=== PATIENT | female | born 1945 | race Caucasian/White ===

== ENCOUNTER 2016-08-10 07:45 | Inpatient (IN) | payer OTHER ==
[~2016-08-10] VITALS: Ht 152.4 cm; Wt 90.0 kg
[~2016-08-10 07:45] MED LIST: ABILIFY5 MG PO; ALPRAZOLAM0.5 MG PO; AMLODIPINE-BEN1 EAC2 PO; CYMBALTA30 MG PO; DETROL LA4 MG PO; DITROPAN5 MG PO; IRON325 M1 PO; LEVOTHROID,S0.112 MG PO; LOPRESSOR100 M1 PO; LOTENSIN HCT1 TABLE1 PO; NAPROXEN500 M1 PO; NAPROXEN500 M2 PO; NEXIUM40 MG PO; NORVASC2.5 MG PO; PRAVACHOL40 MG PO; SIMVASTATIN80 M1 PO; SIMVASTATIN80 MG PO; SYNTHROID100 MCG PO; VITAMIN D1000 INTUN PO; ZOLOFT100 MG PO
[2016-08-10 08:37] VITALS: BP 136/77
[2016-08-10 14:54] VITALS: BP 123/60
[2016-08-10 17:07] VITALS: BP 103/56
[2016-08-10 19:53] VITALS: BP 116/57
[2016-08-11 00:20] VITALS: BP 89/55
[2016-08-11 04:25] VITALS: BP 129/94
[2016-08-11 05:58] LABS: HEMATOCRIT 28.9 % (36.0-46.0); MCV 87.8 FL (83-99)
[2016-08-11 06:23] LABS: ANION GAP 6 MEQ/L (2-14); CHLORIDE 107 MEQ/L (99-109); GFR ESTIMATE (CALCULATED) > 59 mL/min/; GLUCOSE 107 mg/dL (70-99); POTASSIUM 3.4 MEQ/L (3.7-5.4); SAMPLE HEMOLYSIS CHECK 0; SAMPLE ICTERIC CHECK 0; SAMPLE LIPEMIA CHECK 0; SODIUM 143 MEQ/L (136-147); UREA NITROGEN (BUN) 14 mg/dL (9-23)
[2016-08-11 08:17] VITALS: BP 79/44
[2016-08-11 12:03] VITALS: BP 85/51
[2016-08-11 15:38] VITALS: BP 90/51
[2016-08-11 19:52] VITALS: BP 121/59
[2016-08-12 00:20] VITALS: BP 117/59
[2016-08-12 04:10] VITALS: BP 125/65
[2016-08-12 05:32] LABS: HEMATOCRIT 27.6 % (36.0-46.0); MCV 87.3 FL (83-99)
[2016-08-12 05:56] LABS: ANION GAP 6 MEQ/L (2-14); CHLORIDE 106 MEQ/L (99-109); GFR ESTIMATE (CALCULATED) > 59 mL/min/; GLUCOSE 114 mg/dL (70-99); POTASSIUM 3.3 MEQ/L (3.7-5.4); SAMPLE HEMOLYSIS CHECK 0; SAMPLE ICTERIC CHECK 0; SAMPLE LIPEMIA CHECK 0; SODIUM 140 MEQ/L (136-147); UREA NITROGEN (BUN) 12 mg/dL (9-23)
[2016-08-12 08:04] VITALS: BP 134/63
[2016-08-12 11:49] VITALS: BP 134/55
[2016-08-12 15:37] VITALS: BP 147/67
[2016-08-12 20:30] VITALS: BP 161/65
[2016-08-13 00:03] VITALS: BP 136/69
[2016-08-13 04:30] VITALS: BP 114/65
[2016-08-13 07:11] LABS: ANION GAP 6 MEQ/L (2-14); CHLORIDE 104 MEQ/L (99-109); GFR ESTIMATE (CALCULATED) > 59 mL/min/; GLUCOSE 109 mg/dL (70-99); MAGNESIUM 1.8 mg/dl (1.3-2.7); SAMPLE HEMOLYSIS CHECK 0; SAMPLE ICTERIC CHECK 0; SAMPLE LIPEMIA CHECK 0; SODIUM 141 MEQ/L (136-147); UREA NITROGEN (BUN) 7 mg/dL (9-23)
[2016-08-13 07:14] LABS: POTASSIUM 4.3 MEQ/L (3.7-5.4)
[2016-08-13 07:56] VITALS: BP 119/68
[2016-08-13] MEDS ORDERED: BENADRYL25 MG PO (09:11)
[2016-08-13] MEDS ORDERED: SENNA PLUS TAB1 EACH PO (09:12)
[2016-08-13] MEDS ORDERED: CELECOXIB200 MG PO (09:12)
[2016-08-13] MEDS ORDERED: OXYCODONE HCL5 MG PO (09:12)
[2016-08-13] MEDS ORDERED: XARELTO10 MG PO (09:12)
[2016-08-13] MEDS ORDERED: LIDOCAINE700 MG TD (09:12)
[2016-08-13] MEDS ORDERED: TYLENOL REGULA325 MG PO (09:12)
[2016-08-13 11:41] VITALS: BP 108/67
== END 2016-08-13 14:30 | DRG 470 ==
LOC: 2SOUTH 07:45 → 3WEST 07:45 → 2SOUTH 11:15 → 3WEST 14:36
PROVIDERS: Orthopaedic Surgery; Physician Assistant Surgical
PROC: 0SRC0J9 Replacement of Right Knee Joint with Synthetic Substitute, Cemented, Open Approach (ICD-10-PCS; principal; 2016-08-10)
PROC: 3E0T3BZ Introduction of Anesthetic Agent into Peripheral Nerves and Plexi, Percutaneous Approach (ICD-10-PCS; 2016-08-10)
DX: M17.11 Unilateral primary osteoarthritis, right knee (principal); E87.6 Hypokalemia; G47.33 Obstructive sleep apnea (adult) (pediatric); I10 Essential (primary) hypertension; E03.9 Hypothyroidism, unspecified; K21.9 Gastro-esophageal reflux disease without esophagitis; F32.9 Major depressive disorder, single episode, unspecified; D64.9 Anemia, unspecified; Z88.0 Allergy status to penicillin
CPT/HCPCS: 71010; 80048; 83735; 85014; 85018; 93971; 94660; 94799; C1713; J0131; J0690; J1170; J1885; J2250; J2405; J2795; J7050

== ENCOUNTER 2016-09-28 03:14 | Inpatient (IN) | payer OTHER ==
[~2016-09-28] VITALS: Ht 172.7 cm; Wt 86.7 kg
[~2016-09-28 03:14] MED LIST changes: +BENADRYL25 MG PO; +CELECOXIB200 MG PO; +LIDOCAINE700 MG TD; +OXYCODONE HCL5 MG PO; +SENNA PLUS TAB1 EACH PO; +TYLENOL REGULA325 MG PO; +XARELTO10 MG PO
[2016-09-28 03:55] LABS: HEMATOCRIT 31.4 % (36.0-46.0); MCHC 31.8 G/DL (30.0-36.0); MEAN PLAT.VOLUME 10.2 uM^3 (9.5-12.4); RBC DIS.WIDTH-CV 15.9 % (11.8-14.6); RBC DIS.WIDTH-SD 47.7 % (39-53); RED BLOOD COUNT 3.84 M/uL (3.80-5.20); WHITE BLOOD COUNT 18.6 K/uL (4.1-10.2)
[2016-09-28 04:05] LABS: CHLORIDE 101 mEq/L (99-109); SODIUM 137 mEq/L (136-147)
[2016-09-28 04:07] LABS: GLUCOSE 117 mg/dL (70-99)
[2016-09-28 04:09] LABS: ANION GAP 16 MEQ/L (2-14); TOTAL BILIRUBIN 0.4 mg/dL (0.0-1.0)
[2016-09-28 04:11] LABS: ALKALINE PHOSPHATASE 59 IU/L (3-129); GFR ESTIMATE (CALCULATED) 47 mL/min/
[2016-09-28 04:12] LABS: UREA NITROGEN (BUN) 32 mg/dL (9-23)
[2016-09-28 04:14] LABS: LIPASE 19 U/L (1.0-51.0)
[2016-09-28 04:22] LABS: MCV 81.8 FL (83-99); PLATELET COUNT 590 K/uL (156-360)
[2016-09-28 05:11] LABS: ADD MIUA? NO; BILIRUBIN NEGATIVE; BLOOD NEGATIVE; COLOR YELLOW ((YELLOW)); GLUCOSE (STRIP) NEGATIVE; KETONES NEGATIVE; LEUKOCYTES NEGATIVE; NITRITE NEGATIVE; PROTEIN (STRIP) NEGATIVE; SPECIFIC GRAVITY 1.016 (1.000-1.030); UCUL ADDED? NO; UROBILINOGEN 0.2 MG/DL (0.2-1.0)
[2016-09-28 08:20] VITALS: BP 117/61
[2016-09-28 08:30] VITALS: BP 120/57
[2016-09-28 11:47] VITALS: BP 99/51
[2016-09-28 15:10] VITALS: BP 103/55
[2016-09-28 19:02] VITALS: BP 109/62
[2016-09-28 22:40] VITALS: BP 131/75
[2016-09-29 03:05] VITALS: BP 138/65
[2016-09-29 06:15] LABS: ANION GAP 10 MEQ/L (2-14); CHLORIDE 106 MEQ/L (99-109); GFR ESTIMATE (CALCULATED) 58 mL/min/; GLUCOSE 90 mg/dL (70-99); MAGNESIUM 1.9 mg/dl (1.3-2.7); POTASSIUM 4.1 MEQ/L (3.7-5.4); SAMPLE HEMOLYSIS CHECK 0; SAMPLE ICTERIC CHECK 0; SAMPLE LIPEMIA CHECK 0; SODIUM 139 MEQ/L (136-147); UREA NITROGEN (BUN) 22 mg/dL (9-23)
[2016-09-29 06:28] LABS: EOSINOPHIL (%) 0.7 % (0-5); EOSINOPHIL COUNT 0.1 K/uL (0-0.3); IMMATURE GRANULOCYTE (%) 1.2 % (0.0-0.7); IMMATURE GRANULOCYTE COUNT 0.1 K/uL; INSTRUMENT ABS NEUTROPHIL CT 7.7 K/uL; LYMPHOCYTE COUNT 1.1 K/uL (1.0-2.8); MCH 26.4 PG (29.0-34.0); MCHC 31.1 G/DL (30.0-36.0); MCV 84.8 FL (83-99); MONOCYTE (%) 10.6 % (3-12); MONOCYTE COUNT 1.1 K/uL (0-0.8); NEUTROPHIL (%) 76.7 % (45-76); NEUTROPHIL COUNT 7.7 K/uL (1.8-6.4); RBC DIS.WIDTH-CV 15.9 % (11.8-14.6); RBC DIS.WIDTH-SD 49.5 % (39-53)
[2016-09-29 07:34] LABS: MEAN PLAT.VOLUME 9.5 uM^3 (9.5-12.4); PLAT.SUFFICIENCY ADEQUATE; PLATELET COUNT 388 K/uL (156-360)
[2016-09-29 07:44] VITALS: BP 149/95
[2016-09-29] MEDS ORDERED: MELOXICAM7.5 MG PO (13:08)
[2016-09-29] MEDS ORDERED: ONDANSETRON ODT4 MG PO (13:41)
[2016-09-29 20:10] VITALS: BP 102/68
[2016-09-29 22:27] VITALS: BP 11/70
[2016-09-30] VITALS (9 sets, daily range): BP systolic 101–177; BP diastolic 55–80
[2016-09-30 07:09] LABS: ANION GAP 11 MEQ/L (2-14); CHLORIDE 103 MEQ/L (99-109); GFR ESTIMATE (CALCULATED) 58 mL/min/; GLUCOSE 89 mg/dL (70-99); SAMPLE HEMOLYSIS CHECK 0; SAMPLE ICTERIC CHECK 0; SAMPLE LIPEMIA CHECK 0; SODIUM 140 MEQ/L (136-147); UREA NITROGEN (BUN) 20 mg/dL (9-23)
[2016-09-30 07:12] LABS: EOSINOPHIL (%) 0.6 % (0-5); EOSINOPHIL COUNT 0.1 K/uL (0-0.3); HEMATOCRIT 30.2 % (36.0-46.0); IMMATURE GRANULOCYTE (%) 1.7 % (0.0-0.7); IMMATURE GRANULOCYTE COUNT 0.2 K/uL; LYMPHOCYTE COUNT 1.5 K/uL (1.0-2.8); MCH 26.1 PG (29.0-34.0); MCHC 30.8 G/DL (30.0-36.0); MCV 84.6 FL (83-99); MEAN PLAT.VOLUME 9.7 uM^3 (9.5-12.4); MONOCYTE (%) 9.3 % (3-12); MONOCYTE COUNT 1.1 K/uL (0-0.8); NEUTROPHIL (%) 75.3 % (45-76); RBC DIS.WIDTH-CV 15.9 % (11.8-14.6); RBC DIS.WIDTH-SD 49.5 % (39-53); RED BLOOD COUNT 3.57 M/uL (3.80-5.20)
[2016-09-30 07:22] LABS: PLATELET COUNT 533 K/uL (156-360)
[2016-09-30 08:58] LABS: PROTHROMBIN TIME 11.4 SEC (10.2-12.9)
[2016-09-30 09:01] LABS: PTT 24.5 SEC (25-37)
[2016-10-01 02:44] VITALS: BP 145/71
[2016-10-01 07:05] LABS: BASOPHIL COUNT 0.1 K/uL (0-0.1); EOSINOPHIL (%) 1.6 % (0-5); EOSINOPHIL COUNT 0.2 K/uL (0-0.3); HEMATOCRIT 28.4 % (36.0-46.0); IMMATURE GRANULOCYTE (%) 1.7 % (0.0-0.7); IMMATURE GRANULOCYTE COUNT 0.2 K/uL; INSTRUMENT ABS NEUTROPHIL CT 7.4 K/uL; LYMPHOCYTE COUNT 1.7 K/uL (1.0-2.8); MCH 26.8 PG (29.0-34.0); MCHC 31.7 G/DL (30.0-36.0); MCV 84.5 FL (83-99); MEAN PLAT.VOLUME 9.6 uM^3 (9.5-12.4); MONOCYTE (%) 9.3 % (3-12); NEUTROPHIL (%) 70.2 % (45-76); NEUTROPHIL COUNT 7.4 K/uL (1.8-6.4); PLATELET COUNT 479 K/uL (156-360); RBC DIS.WIDTH-CV 15.9 % (11.8-14.6); RBC DIS.WIDTH-SD 49.6 % (39-53); RED BLOOD COUNT 3.36 M/uL (3.80-5.20); WHITE BLOOD COUNT 10.6 K/uL (4.1-10.2)
[2016-10-01 07:23] LABS: ANION GAP 8 MEQ/L (2-14); CHLORIDE 104 MEQ/L (99-109); GFR ESTIMATE (CALCULATED) > 59 mL/min/; GLUCOSE 98 mg/dL (70-99); SAMPLE HEMOLYSIS CHECK 0; SAMPLE ICTERIC CHECK 0; SAMPLE LIPEMIA CHECK 0; SODIUM 140 MEQ/L (136-147); UREA NITROGEN (BUN) 19 mg/dL (9-23)
[2016-10-01 07:30] VITALS: BP 122/77
[2016-10-01 10:36] VITALS: BP 123/60
[2016-10-01 15:54] VITALS: BP 178/85
[2016-10-01 20:05] VITALS: BP 152/80
[2016-10-02] VITALS (7 sets, daily range): BP systolic 113–158; BP diastolic 59–83
[2016-10-03 03:05] VITALS: BP 126/73
[2016-10-03 07:17] VITALS: BP 129/83
[2016-10-03] MEDS ORDERED: ENDOCET 5-3251 EACH PO (08:48)
== END 2016-10-03 11:52 | disposition home or self-care (01) | DRG 375 ==
LOC: EME 03:14 → EDOF 07:01 → 5EAST 07:01 → ENRESERV 07:02 → 5EAST 08:22 → ENPENDDIS 10-03 → 5EAST 10-03 11:52
PROVIDERS: Emergency Medicine; Hospitalist; Internal Medicine; Radiology Diagnostic Radiology
DX: C78.6 Secondary malignant neoplasm of retroperitoneum and peritoneum (principal); C80.1 Malignant (primary) neoplasm, unspecified; N13.30 Unspecified hydronephrosis; R59.1 Generalized enlarged lymph nodes; K52.9 Noninfective gastroenteritis and colitis, unspecified; D64.9 Anemia, unspecified; D75.89 Other specified diseases of blood and blood-forming organs; I10 Essential (primary) hypertension; E78.5 Hyperlipidemia, unspecified; E78.00 Pure hypercholesterolemia, unspecified; K21.9 Gastro-esophageal reflux disease without esophagitis; E03.9 Hypothyroidism, unspecified; K57.30 Diverticulosis of large intestine without perforation or abscess without bleeding; F32.9 Major depressive disorder, single episode, unspecified; F41.9 Anxiety disorder, unspecified; G89.29 Other chronic pain; M54.9 Dorsalgia, unspecified; Z96.651 Presence of right artificial knee joint; E66.9 Obesity, unspecified; Z68.29 Body mass index [BMI] 29.0-29.9, adult; Z79.01 Long term (current) use of anticoagulants; Z80.42 Family history of malignant neoplasm of prostate; Z87.440 Personal history of urinary (tract) infections
CPT/HCPCS: 74176; 74420; 77012; 80048; 80053; 81003; 83690; 83735; 85025; 85027; 85610; 85730; 88305; 88341 TC; 88342 TC; 94799; 99281; 99285; C1876; J0131; J0330; J1100; J1170; J1626; J1644; J1885; J1956; J2250; J2270; J2405; J2765; J3010; J7030

== ENCOUNTER 2016-10-26 08:07 | Day surgery (SDC) | payer OTHER, MEDICARE ==
[~2016-10-26] VITALS: Ht 152.4 cm; Wt 84.0 kg
[~2016-10-26 08:07] MED LIST changes: +ENDOCET 5-3251 EACH PO; +MELOXICAM7.5 MG PO; +ONDANSETRON ODT4 MG PO
== END 2016-10-26 10:30 | disposition home or self-care (01) ==
LOC: CATH 08:07
PROC: B543ZZA Ultrasonography of Right Jugular Veins, Guidance (ICD-10-PCS; principal; 2016-10-26)
PROC: B5181ZA Fluoroscopy of Superior Vena Cava using Low Osmolar Contrast, Guidance (ICD-10-PCS; principal; 2016-10-26)
PROC: 02HV33Z Insertion of Infusion Device into Superior Vena Cava, Percutaneous Approach (ICD-10-PCS; principal; 2016-10-26)
DX: I87.8 Other specified disorders of veins (principal); I87.2 Venous insufficiency (chronic) (peripheral); C18.9 Malignant neoplasm of colon, unspecified; Z80.49 Family history of malignant neoplasm of other genital organs; Z80.42 Family history of malignant neoplasm of prostate; Z88.0 Allergy status to penicillin
CPT/HCPCS: C1751; C1894; J0690; J1644; J2250; J3010; S0020

== ENCOUNTER 2016-10-28 15:16 | Emergency (ER) | payer OTHER ==
[~2016-10-28] VITALS: Ht 152.4 cm; Wt 83.7 kg
[2016-10-28 16:16] LABS: ADD MIUA? YES; BILIRUBIN NEGATIVE; BLOOD LARGE; COLOR AMBER ((YELLOW)); GLUCOSE (STRIP) NEGATIVE; KETONES NEGATIVE; LEUKOCYTES TRACE; NITRITE NEGATIVE; PROTEIN (STRIP) 100; SPECIFIC GRAVITY 1.016 (1.000-1.030); UROBILINOGEN 0.2 MG/DL (0.2-1.0)
[2016-10-28 16:34] LABS: BASOPHIL COUNT 0.1 K/uL (0-0.1); EOSINOPHIL (%) 3.1 % (0-5); EOSINOPHIL COUNT 0.2 K/uL (0-0.3); HEMATOCRIT 27.5 % (36.0-46.0); IMMATURE GRANULOCYTE (%) 0.4 % (0.0-0.7); INSTRUMENT ABS NEUTROPHIL CT 4.1 K/uL; LYMPHOCYTE COUNT 0.8 K/uL (1.0-2.8); MCH 25.4 PG (29.0-34.0); MCHC 31.6 G/DL (30.0-36.0); MEAN PLAT.VOLUME 9.2 uM^3 (9.5-12.4); MONOCYTE (%) 6.4 % (3-12); MONOCYTE COUNT 0.4 K/uL (0-0.8); NEUTROPHIL (%) 74.2 % (45-76); NEUTROPHIL COUNT 4.1 K/uL (1.8-6.4); PLATELET COUNT 376 K/uL (156-360); RBC DIS.WIDTH-CV 15.3 % (11.8-14.6); RBC DIS.WIDTH-SD 44.6 % (39-53); RED BLOOD COUNT 3.42 M/uL (3.80-5.20); WHITE BLOOD COUNT 5.5 K/uL (4.1-10.2)
[2016-10-28 16:37] LABS: MCV 80.4 FL (83-99)
[2016-10-28 16:38] LABS: INTER. NORMALIZED RATIO 1.1; PROTHROMBIN TIME 11.8 SEC (10.2-12.9)
[2016-10-28 16:40] LABS: CHLORIDE 106 mEq/L (99-109); POTASSIUM 2.9 mEq/L (3.7-5.4); SODIUM 141 mEq/L (136-147)
[2016-10-28 16:41] LABS: GLUCOSE 124 mg/dL (70-99)
[2016-10-28 16:43] LABS: ANION GAP 11 MEQ/L (2-14)
[2016-10-28 16:45] LABS: GFR ESTIMATE (CALCULATED) > 59 mL/min/
[2016-10-28 16:46] LABS: UREA NITROGEN (BUN) 22 mg/dL (9-23)
[2016-10-28 16:48] LABS: BACTERIA RARE /HPF; EPITHELIAL CELLS RARE /HPF; MUCUS TRACE /LPF; RED BLOOD CELLS TNTC /HPF (0-5)
[2016-10-28] MEDS ORDERED: K-DUR10 MEQ PO (19:11)
[2016-10-28 19:33] VITALS: BP 92/52
== END 2016-10-28 19:35 | disposition home or self-care (01) ==
LOC: EME 15:16
PROVIDERS: Emergency Medicine
DX: R31.9 Hematuria, unspecified (principal); E87.6 Hypokalemia; C18.9 Malignant neoplasm of colon, unspecified; C78.6 Secondary malignant neoplasm of retroperitoneum and peritoneum; Z79.899 Other long term (current) drug therapy; E78.5 Hyperlipidemia, unspecified; E03.9 Hypothyroidism, unspecified; K21.9 Gastro-esophageal reflux disease without esophagitis; G89.29 Other chronic pain; M54.5 Low back pain; Z87.442 Personal history of urinary calculi; Z96.89 Presence of other specified functional implants; Z96.651 Presence of right artificial knee joint; Z88.0 Allergy status to penicillin
CPT/HCPCS: 80048; 81003; 85025; 85610; 99281; 99285; J3480; J7040

== ENCOUNTER 2016-10-29 22:37 | Inpatient (IN) | payer OTHER ==
[~2016-10-29] VITALS: Ht 152.4 cm; Wt 87.9 kg
[~2016-10-29 22:37] MED LIST changes: +K-DUR10 MEQ PO
[2016-10-29 23:22] LABS: HEMATOCRIT 26.2 % (36.0-46.0); MCH 25.7 PG (29.0-34.0); MCHC 32.1 G/DL (30.0-36.0); MCV 80.1 FL (83-99); MEAN PLAT.VOLUME 10.1 uM^3 (9.5-12.4); PLATELET COUNT 350 K/uL (156-360); RBC DIS.WIDTH-CV 15.6 % (11.8-14.6); RBC DIS.WIDTH-SD 45.7 % (39-53); RED BLOOD COUNT 3.27 M/uL (3.80-5.20); WHITE BLOOD COUNT 18.8 K/uL (4.1-10.2)
[2016-10-29 23:29] LABS: INTER. NORMALIZED RATIO 1.1; PROTHROMBIN TIME 12.5 SEC (10.2-12.9)
[2016-10-29 23:32] LABS: PTT 24.3 SEC (25-37)
[2016-10-29 23:40] LABS: CHLORIDE 111 mEq/L (99-109); POTASSIUM 2.8 mEq/L (3.7-5.4); SODIUM 140 mEq/L (136-147)
[2016-10-29 23:43] LABS: GLUCOSE 159 mg/dL (70-99)
[2016-10-29 23:44] LABS: ANION GAP 12 MEQ/L (2-14)
[2016-10-29 23:45] LABS: TOTAL BILIRUBIN 0.7 mg/dL (0.0-1.0)
[2016-10-29 23:46] LABS: ALKALINE PHOSPHATASE 48 IU/L (3-129)
[2016-10-29 23:47] LABS: UREA NITROGEN (BUN) 22 mg/dL (9-23)
[2016-10-29 23:50] LABS: LIPASE 9 U/L (1.0-51.0)
[2016-10-29 23:52] LABS: GFR ESTIMATE (CALCULATED) 29 mL/min/
[2016-10-30] VITALS (27 sets, daily range): BP systolic 70–124; BP diastolic 41–74
[2016-10-30 02:30] LABS: ADD MIUA? YES; BILIRUBIN NEGATIVE; BLOOD MODERATE; COLOR AMBER ((YELLOW)); GLUCOSE (STRIP) NEGATIVE; KETONES NEGATIVE; LEUKOCYTES LARGE; NITRITE POSITIVE; PROTEIN (STRIP) 30; SPECIFIC GRAVITY 1.013 (1.000-1.030); UROBILINOGEN 0.2 MG/DL (0.2-1.0)
[2016-10-30 02:48] LABS: BACTERIA 3+ /HPF; CASTS NONE SEEN /LPF; CRYSTALS NONE SEEN; EPITHELIAL CELLS 2+ /HPF; MUCUS RARE /LPF; RED BLOOD CELLS 0-5 /HPF (0-5); UCUL ADDED? YES; WHITE BLOOD CELLS 40-50 /HPF (0-5)
[2016-10-30 05:12] LABS: METH RESISTANT S AUREUS PCR NEGATIVE (NEGATIVE)
[2016-10-30 05:21] LABS: PROBE CHECK PASS; SPECIMEN PROCESSING CONTROL PASS
[2016-10-30 08:49] LABS: HEMATOCRIT 25.7 % (36.0-46.0); MCH 25.2 PG (29.0-34.0); PLATELET COUNT 302 K/uL (156-360); RBC DIS.WIDTH-CV 15.7 % (11.8-14.6); RBC DIS.WIDTH-SD 48.1 % (39-53); RED BLOOD COUNT 3.06 M/uL (3.80-5.20); WHITE BLOOD COUNT 11.4 K/uL (4.1-10.2)
[2016-10-30 09:18] LABS: ABS NEUTROPHIL COUNT 10.8; ANISOCYTOSIS 1+; BURR CELLS 1+; EOSINOPHIL ABS CT 0; INSTRUMENT ABS NEUTROPHIL CT 9.5 K/uL; LYMPHOCYTES 0.8 % (15.0-45.0); METAMYELOCYTES 3.5 %; OVALOCYTES 1+; PLAT.SUFFICIENCY ADEQUATE; POIKILOCYTOSIS 1+; SEG.NEUTROPHILS 74.8 % (46.0-76.0)
[2016-10-30 09:22] LABS: ANION GAP 14 MEQ/L (2-14); CHLORIDE 111 MEQ/L (99-109); GFR ESTIMATE (CALCULATED) 28 mL/min/; GLUCOSE 124 mg/dL (70-99); POTASSIUM 3.1 MEQ/L (3.7-5.4); SAMPLE HEMOLYSIS CHECK 0; SAMPLE ICTERIC CHECK 0; SAMPLE LIPEMIA CHECK 0; SODIUM 141 MEQ/L (136-147); UREA NITROGEN (BUN) 26 mg/dL (9-23)
[2016-10-30 12:27] LABS: TROP-I INTERPRETATION NEGATIVE; TROPONIN-I 0.01 ng/mL (0.0-0.30)
[2016-10-30] MEDS ORDERED: LOPERAMIDE2 MG PO (13:55)
[2016-10-30] MEDS ORDERED: ONDANSETRON HCL4 MG PO (13:56)
[2016-10-30 18:18] LABS: POINT-OF-CARE METER ID UU14174217
[2016-10-30 19:33] LABS: HEMATOCRIT 23.4 % (36.0-46.0); MCH 25.4 PG (29.0-34.0); MCHC 31.2 G/DL (30.0-36.0); MCV 81.5 FL (83-99); RBC DIS.WIDTH-CV 15.7 % (11.8-14.6); RBC DIS.WIDTH-SD 47.1 % (39-53); RED BLOOD COUNT 2.87 M/uL (3.80-5.20); WHITE BLOOD COUNT 10.7 K/uL (4.1-10.2)
[2016-10-30 20:22] LABS: ANISOCYTOSIS 1+; BAND NEUTROPHILS 22.2 % (0-8.0); BURR CELLS 1+; EOSINOPHIL ABS CT 0.1; EOSINOPHILS 0.9 % (0-5.0); INSTRUMENT ABS NEUTROPHIL CT 8.3 K/uL; LYMPHOCYTES 1.7 % (15.0-45.0); METAMYELOCYTES 2.6 %; MICROCYTOSIS 1+; OVALOCYTES 1+; PLAT.SUFFICIENCY ADEQUATE; PLATELET CLUMPS PRESENT - PLATELET COUNT APPEARS ADQ.; SEG.NEUTROPHILS 70.9 % (46.0-76.0)
[2016-10-30 20:23] LABS: PLATELET COUNT UNABLE TO REPORT K/uL (156-360)
[2016-10-31] VITALS (36 sets, daily range): BP systolic 0–148; BP diastolic 0–88
[2016-10-31 00:24] LABS: POINT-OF-CARE METER ID UU13113731
[2016-10-31 02:36] LABS: C DIFF TOXIN NEGATIVE (NEGATIVE)
[2016-10-31 02:40] LABS: PROBE CHECK PASS; SPECIMEN PROCESSING CONTROL PASS
[2016-10-31 06:34] LABS: ANION GAP 11 MEQ/L (2-14); CHLORIDE 112 MEQ/L (99-109); GFR ESTIMATE (CALCULATED) 29 mL/min/; GLUCOSE 144 mg/dL (70-99); MAGNESIUM 1.8 mg/dl (1.3-2.7); POTASSIUM 3.1 MEQ/L (3.7-5.4); SAMPLE HEMOLYSIS CHECK 0; SAMPLE ICTERIC CHECK 0; SAMPLE LIPEMIA CHECK 0; SODIUM 142 MEQ/L (136-147); UREA NITROGEN (BUN) 22 mg/dL (9-23)
[2016-10-31 06:43] LABS: MCH 25.1 PG (29.0-34.0); MCHC 30.8 G/DL (30.0-36.0); MCV 81.4 FL (83-99); MEAN PLAT.VOLUME 10.1 uM^3 (9.5-12.4); RBC DIS.WIDTH-CV 15.8 % (11.8-14.6); RED BLOOD COUNT 2.95 M/uL (3.80-5.20); WHITE BLOOD COUNT 9.8 K/uL (4.1-10.2)
[2016-10-31 06:45] LABS: PLATELET COUNT 204 K/uL (156-360)
[2016-10-31 06:49] LABS: INTER. NORMALIZED RATIO 1.4
[2016-10-31 07:29] LABS: ABS NEUTROPHIL COUNT 8.7; ANISOCYTOSIS 1+; BAND NEUTROPHILS 10.6 % (0-8.0); EOSINOPHIL ABS CT 0.1; EOSINOPHILS 0.9 % (0-5.0); INSTRUMENT ABS NEUTROPHIL CT 8.5 K/uL; LYMPHOCYTES 0.9 % (15.0-45.0); METAMYELOCYTES 0.9 %; MICROCYTOSIS 2+; MYELOCYTES 0.9 %; OVALOCYTES 1+; PLAT.SUFFICIENCY ADEQUATE; POIKILOCYTOSIS 1+; SEG.NEUTROPHILS 77.9 % (46.0-76.0); SMUDGE CELLS 2.7
[2016-10-31 12:04] LABS: POINT-OF-CARE METER ID UU13113731
[2016-10-31 13:35] LABS: C DIFF TOXIN ND (NEGATIVE)
[2016-10-31 18:17] LABS: POINT-OF-CARE METER ID UU13113731
[2016-10-31 18:27] LABS: IRON < 10.0 MCG/DL (35-150)
[2016-11-01] VITALS (24 sets, daily range): BP systolic 107–154; BP diastolic 57–91
[2016-11-01 00:26] LABS: POINT-OF-CARE METER ID UU14174217
[2016-11-01 02:34] LABS: HEMATOCRIT 27.8 % (36.0-46.0); MCH 26.8 PG (29.0-34.0); MCHC 32.4 G/DL (30.0-36.0); MCV 82.7 FL (83-99); MEAN PLAT.VOLUME 9.8 uM^3 (9.5-12.4); PLATELET COUNT 171 K/uL (156-360); RBC DIS.WIDTH-CV 15.5 % (11.8-14.6); RBC DIS.WIDTH-SD 47.2 % (39-53); RED BLOOD COUNT 3.36 M/uL (3.80-5.20); WHITE BLOOD COUNT 12.6 K/uL (4.1-10.2)
[2016-11-01 06:11] LABS: HEMATOCRIT 26.9 % (36.0-46.0); MCH 27.3 PG (29.0-34.0); MCHC 32.7 G/DL (30.0-36.0); MCV 83.5 FL (83-99); MEAN PLAT.VOLUME 9.8 uM^3 (9.5-12.4); PLATELET COUNT 169 K/uL (156-360); RBC DIS.WIDTH-CV 15.7 % (11.8-14.6); RBC DIS.WIDTH-SD 47.7 % (39-53); RED BLOOD COUNT 3.22 M/uL (3.80-5.20)
[2016-11-01 06:19] LABS: ANION GAP 8 MEQ/L (2-14); CHLORIDE 112 MEQ/L (99-109); GFR ESTIMATE (CALCULATED) 36 mL/min/; POTASSIUM 3.3 MEQ/L (3.7-5.4); SAMPLE HEMOLYSIS CHECK 0; SAMPLE ICTERIC CHECK 0; SAMPLE LIPEMIA CHECK 0; SODIUM 141 MEQ/L (136-147); UREA NITROGEN (BUN) 23 mg/dL (9-23)
[2016-11-01 06:20] LABS: GLUCOSE 103 mg/dL (70-99)
[2016-11-01 07:03] LABS: ABS NEUTROPHIL COUNT 10.5; BURR CELLS 3+; EOSINOPHIL ABS CT 0; INSTRUMENT ABS NEUTROPHIL CT 10.3 K/uL; LYMPHOCYTES 4.9 % (15.0-45.0); PLAT.SUFFICIENCY ADEQUATE; POIKILOCYTOSIS 3+; SEG.NEUTROPHILS 90.1 % (46.0-76.0); TEAR DROP CELLS 1+
[2016-11-01 12:43] LABS: POINT-OF-CARE METER ID UU13113731
[2016-11-01 17:23] LABS: POINT-OF-CARE METER ID UU14208751
[2016-11-02] VITALS (15 sets, daily range): BP systolic 0–147; BP diastolic 0–84
[2016-11-02 01:01] LABS: POINT-OF-CARE METER ID UU14208751; POINT-OF-CARE USER ID LABHNS84
[2016-11-02 05:53] LABS: HEMATOCRIT 26.6 % (36.0-46.0); MCH 26.7 PG (29.0-34.0); MCV 83.6 FL (83-99); PLATELET COUNT 133 K/uL (156-360); RBC DIS.WIDTH-CV 15.9 % (11.8-14.6); RBC DIS.WIDTH-SD 48.9 % (39-53); RED BLOOD COUNT 3.18 M/uL (3.80-5.20); WHITE BLOOD COUNT 7.2 K/uL (4.1-10.2)
[2016-11-02 06:13] LABS: ANION GAP 8 MEQ/L (2-14); CHLORIDE 112 MEQ/L (99-109); GFR ESTIMATE (CALCULATED) 43 mL/min/; GLUCOSE 109 mg/dL (70-99); POTASSIUM 3.6 MEQ/L (3.7-5.4); SAMPLE HEMOLYSIS CHECK 0; SAMPLE ICTERIC CHECK 0; SAMPLE LIPEMIA CHECK 0; SODIUM 142 MEQ/L (136-147); UREA NITROGEN (BUN) 19 mg/dL (9-23)
[2016-11-02 07:03] LABS: ABS NEUTROPHIL COUNT 6.8; BAND NEUTROPHILS 2.6 % (0-8.0); EOSINOPHIL ABS CT 0; INSTRUMENT ABS NEUTROPHIL CT 6.3 K/uL; LYMPHOCYTES 1.8 % (15.0-45.0); METAMYELOCYTES 0.9 %; SEG.NEUTROPHILS 92.1 % (46.0-76.0); SMUDGE CELLS 0.9
[2016-11-02 11:50] LABS: POINT-OF-CARE METER ID UU14208751; POINT-OF-CARE USER ID 612031313
[2016-11-03] VITALS (12 sets, daily range): BP systolic 0–156; BP diastolic 0–81
[2016-11-03 05:32] LABS: HEMATOCRIT 25.7 % (36.0-46.0); MCH 26.1 PG (29.0-34.0); MCHC 31.1 G/DL (30.0-36.0); MEAN PLAT.VOLUME 9.8 uM^3 (9.5-12.4); PLATELET COUNT 107 K/uL (156-360); RBC DIS.WIDTH-CV 16.1 % (11.8-14.6); RBC DIS.WIDTH-SD 49.3 % (39-53); RED BLOOD COUNT 3.06 M/uL (3.80-5.20); WHITE BLOOD COUNT 4.1 K/uL (4.1-10.2)
[2016-11-03 06:01] LABS: EOSINOPHIL (%) 2.4 % (0-5); EOSINOPHIL COUNT 0.1 K/uL (0-0.3); IMMATURE GRANULOCYTE (%) 1.7 % (0.0-0.7); IMMATURE GRANULOCYTE COUNT 0.1 K/uL; INSTRUMENT ABS NEUTROPHIL CT 3.2 K/uL; LYMPHOCYTE COUNT 0.2 K/uL (1.0-2.8); MONOCYTE (%) 14.5 % (3-12); MONOCYTE COUNT 0.6 K/uL (0-0.8); NEUTROPHIL (%) 77.1 % (45-76); NEUTROPHIL COUNT 3.2 K/uL (1.8-6.4)
[2016-11-03 09:23] LABS: ANION GAP 5 MEQ/L (2-14); CHLORIDE 109 MEQ/L (99-109); GFR ESTIMATE (CALCULATED) 47 mL/min/; GLUCOSE 105 mg/dL (70-99); POTASSIUM 3.2 MEQ/L (3.7-5.4); SAMPLE HEMOLYSIS CHECK 0; SAMPLE ICTERIC CHECK 0; SAMPLE LIPEMIA CHECK 0; SODIUM 140 MEQ/L (136-147); UREA NITROGEN (BUN) 15 mg/dL (9-23)
[2016-11-03 09:36] LABS: MAGNESIUM 1.4 mg/dl (1.3-2.7)
[2016-11-04 07:58] VITALS: BP 178/81
[2016-11-04 09:12] LABS: HEMATOCRIT 27.1 % (36.0-46.0); MCH 26.9 PG (29.0-34.0); MCHC 32.1 G/DL (30.0-36.0); MCV 83.6 FL (83-99); MEAN PLAT.VOLUME 9.6 uM^3 (9.5-12.4); PLATELET COUNT 125 K/uL (156-360); RBC DIS.WIDTH-CV 16.3 % (11.8-14.6); RBC DIS.WIDTH-SD 49.6 % (39-53); RED BLOOD COUNT 3.24 M/uL (3.80-5.20)
[2016-11-04 09:59] LABS: ANION GAP 7 MEQ/L (2-14); CHLORIDE 107 MEQ/L (99-109); FERRITIN 926 NG/ML (10-291); GFR ESTIMATE (CALCULATED) 52 mL/min/; GLUCOSE 107 mg/dL (70-99); MAGNESIUM 1.7 mg/dl (1.3-2.7); POTASSIUM 3.4 MEQ/L (3.7-5.4); SAMPLE HEMOLYSIS CHECK 0; SAMPLE ICTERIC CHECK 0; SAMPLE LIPEMIA CHECK 0; SODIUM 139 MEQ/L (136-147); UREA NITROGEN (BUN) 11 mg/dL (9-23)
[2016-11-04 10:34] LABS: ABS NEUTROPHIL COUNT 4.4; BAND NEUTROPHILS 7.8 % (0-8.0); BASOPHILS 0.9 %; EOSINOPHIL ABS CT 0; EOSINOPHILS 0.9 % (0-5.0); INSTRUMENT ABS NEUTROPHIL CT 3.7 K/uL; LYMPHOCYTES 6.9 % (15.0-45.0); METAMYELOCYTES 0.9 %; OVALOCYTES 1+; PLAT.SUFFICIENCY DECREASED; POIKILOCYTOSIS 1+; SEG.NEUTROPHILS 80.9 % (46.0-76.0)
[2016-11-04 15:35] VITALS: BP 177/80
[2016-11-04 18:47] VITALS: BP 151/76
[2016-11-04 23:58] VITALS: BP 143/69
[2016-11-05 06:56] LABS: HEMATOCRIT 26.8 % (36.0-46.0); MCH 26.3 PG (29.0-34.0); MCHC 31.3 G/DL (30.0-36.0); MCV 83.8 FL (83-99); MEAN PLAT.VOLUME 10.4 uM^3 (9.5-12.4); PLATELET COUNT 141 K/uL (156-360); RBC DIS.WIDTH-CV 16.1 % (11.8-14.6); RBC DIS.WIDTH-SD 48.6 % (39-53); WHITE BLOOD COUNT 6.3 K/uL (4.1-10.2)
[2016-11-05 07:12] VITALS: BP 170/92
[2016-11-05 07:20] LABS: ANION GAP 8 MEQ/L (2-14); CHLORIDE 107 MEQ/L (99-109); GFR ESTIMATE (CALCULATED) 47 mL/min/; GLUCOSE 105 mg/dL (70-99); POTASSIUM 3.4 MEQ/L (3.7-5.4); SAMPLE HEMOLYSIS CHECK 0; SAMPLE ICTERIC CHECK 0; SAMPLE LIPEMIA CHECK 0; SODIUM 143 MEQ/L (136-147); UREA NITROGEN (BUN) 15 mg/dL (9-23)
[2016-11-05 07:54] LABS: EOSINOPHIL (%) 1.1 % (0-5); EOSINOPHIL COUNT 0.1 K/uL (0-0.3); HEMATOLOGY COMMENT 1 SMEAR COMPATIBLE; IMMATURE GRANULOCYTE (%) 1.9 % (0.0-0.7); IMMATURE GRANULOCYTE COUNT 0.1 K/uL; INSTRUMENT ABS NEUTROPHIL CT 4.5 K/uL; LYMPHOCYTE COUNT 0.7 K/uL (1.0-2.8); MONOCYTE (%) 12.8 % (3-12); MONOCYTE COUNT 0.8 K/uL (0-0.8); NEUTROPHIL (%) 72.3 % (45-76); NEUTROPHIL COUNT 4.5 K/uL (1.8-6.4)
[2016-11-05 11:19] VITALS: BP 168/70
[2016-11-05 11:21] LABS: BASE EXCESS 3.9 mEq/L (-3 to +3); BICARBONATE 27.4 mEq/L (22-26); CARBOXY HGB 1.4 % (0-5); METHEMOGLOBIN 1.2 % (0-1.5); PCO2 36 mm Hg (35-45); PO2 80 mm Hg (80-100); pH 7.49 (7.35-7.45)
[2016-11-05 11:24] LABS: COMMENTS - BLOOD GASES A+C+; DEVICE NCHHF; FI02 100 %; O2 FLOW 35 L/MIN; SITE RR; TOTAL RESP RATE 20 resp/min
[2016-11-05 15:20] VITALS: BP 140/67
[2016-11-05 23:57] VITALS: BP 105/51
[2016-11-06 04:33] VITALS: BP 100/55
[2016-11-06 06:13] LABS: HEMATOCRIT 27.7 % (36.0-46.0); MCH 26.7 PG (29.0-34.0); MCHC 31.4 G/DL (30.0-36.0); MEAN PLAT.VOLUME 10.7 uM^3 (9.5-12.4); PLATELET COUNT 147 K/uL (156-360); RBC DIS.WIDTH-CV 16.6 % (11.8-14.6); RBC DIS.WIDTH-SD 51.5 % (39-53); RED BLOOD COUNT 3.26 M/uL (3.80-5.20); WHITE BLOOD COUNT 5.3 K/uL (4.1-10.2)
[2016-11-06 06:48] LABS: EOSINOPHIL (%) 1.5 % (0-5); EOSINOPHIL COUNT 0.1 K/uL (0-0.3); IMMATURE GRANULOCYTE (%) 3.6 % (0.0-0.7); IMMATURE GRANULOCYTE COUNT 0.2 K/uL; INSTRUMENT ABS NEUTROPHIL CT 3.8 K/uL; LYMPHOCYTE COUNT 0.6 K/uL (1.0-2.8); MONOCYTE (%) 10.1 % (3-12); MONOCYTE COUNT 0.5 K/uL (0-0.8); NEUTROPHIL (%) 72.2 % (45-76); NEUTROPHIL COUNT 3.8 K/uL (1.8-6.4)
[2016-11-06 07:50] VITALS: BP 118/65
[2016-11-06 07:53] LABS: ANION GAP 7 MEQ/L (2-14); CHLORIDE 106 MEQ/L (99-109); GFR ESTIMATE (CALCULATED) 43 mL/min/; GLUCOSE 105 mg/dL (70-99); POTASSIUM 3.3 MEQ/L (3.7-5.4); SAMPLE HEMOLYSIS CHECK 0; SAMPLE ICTERIC CHECK 0; SAMPLE LIPEMIA CHECK 0; SODIUM 140 MEQ/L (136-147); UREA NITROGEN (BUN) 14 mg/dL (9-23)
[2016-11-06 16:42] VITALS: BP 145/83
[2016-11-07 00:06] VITALS: BP 149/66
[2016-11-07 07:55] VITALS: BP 151/69
[2016-11-07 16:11] VITALS: BP 133/62
[2016-11-07 19:45] VITALS: BP 116/71
[2016-11-07 23:58] VITALS: BP 135/66
[2016-11-08 06:55] LABS: MCH 27.2 PG (29.0-34.0); MCHC 32.2 G/DL (30.0-36.0); MCV 84.4 FL (83-99); MEAN PLAT.VOLUME 10.7 uM^3 (9.5-12.4); RBC DIS.WIDTH-CV 17.2 % (11.8-14.6); RBC DIS.WIDTH-SD 52.3 % (39-53); WHITE BLOOD COUNT 7.4 K/uL (4.1-10.2)
[2016-11-08 07:01] LABS: PLATELET COUNT 240 K/uL (156-360)
[2016-11-08 07:39] LABS: ANION GAP 7 MEQ/L (2-14); CHLORIDE 105 MEQ/L (99-109); GLUCOSE 132 mg/dL (70-99); MAGNESIUM 1.7 mg/dl (1.3-2.7); SAMPLE HEMOLYSIS CHECK 0; SAMPLE ICTERIC CHECK 0; SAMPLE LIPEMIA CHECK 0; SODIUM 137 MEQ/L (136-147)
[2016-11-08 07:41] VITALS: BP 150/80
[2016-11-08 07:41] LABS: GFR ESTIMATE (CALCULATED) 15 mL/min/; POTASSIUM 4.6 MEQ/L (3.7-5.4); UREA NITROGEN (BUN) 26 mg/dL (9-23)
[2016-11-08 15:03] LABS: ADD MIUA? YES; BILIRUBIN NEGATIVE; BLOOD SMALL; COLOR YELLOW ((YELLOW)); GLUCOSE (STRIP) NEGATIVE; KETONES NEGATIVE; LEUKOCYTES NEGATIVE; NITRITE NEGATIVE; PROTEIN (STRIP) NEGATIVE; UROBILINOGEN 0.2 MG/DL (0.2-1.0)
[2016-11-08 15:54] LABS: BACTERIA NONE SEEN /HPF; EPITHELIAL CELLS 4+ /HPF; MUCUS TRACE /LPF; RED BLOOD CELLS NONE SEEN /HPF (0-5); UCUL ADDED? NO; URIC ACID CRYSTALS 4+ /HPF; WHITE BLOOD CELLS 0-5 /HPF (0-5)
[2016-11-08 16:03] VITALS: BP 164/80
[2016-11-08 17:03] LABS: UR CREATININE CONCENTRATION 68.8 MG/DL
[2016-11-08 22:41] VITALS: BP 130/70
[2016-11-09 08:01] LABS: HEMATOCRIT 32.4 % (36.0-46.0); MCH 25.9 PG (29.0-34.0); MCHC 30.6 G/DL (30.0-36.0); MCV 84.8 FL (83-99); MEAN PLAT.VOLUME 10.4 uM^3 (9.5-12.4); PLATELET COUNT 248 K/uL (156-360); RBC DIS.WIDTH-CV 17.5 % (11.8-14.6); RBC DIS.WIDTH-SD 53.9 % (39-53); RED BLOOD COUNT 3.82 M/uL (3.80-5.20); WHITE BLOOD COUNT 6.7 K/uL (4.1-10.2)
[2016-11-09 08:29] LABS: ALKALINE PHOSPHATASE 84 IU/L (3-129); ANION GAP 10 MEQ/L (2-14); CHLORIDE 105 MEQ/L (99-109); GFR ESTIMATE (CALCULATED) 15 mL/min/; POTASSIUM 4.4 MEQ/L (3.7-5.4); SAMPLE HEMOLYSIS CHECK 0; SAMPLE ICTERIC CHECK 0; SAMPLE LIPEMIA CHECK 0; SODIUM 139 MEQ/L (136-147); TOTAL BILIRUBIN 0.5 MG/DL (0.0-1.0); UREA NITROGEN (BUN) 32 mg/dL (9-23); URIC ACID 8.5 mg/dL (3.1-9.2)
[2016-11-09 08:30] LABS: GLUCOSE 81 mg/dL (70-99); MAGNESIUM 1.4 mg/dl (1.3-2.7)
[2016-11-09 08:42] VITALS: BP 150/72
[2016-11-09 16:14] VITALS: BP 128/61
[2016-11-09 23:10] VITALS: BP 127/61
[2016-11-10 07:01] LABS: ANION GAP 6 MEQ/L (2-14); CHLORIDE 108 MEQ/L (99-109); GFR ESTIMATE (CALCULATED) 31 mL/min/; GLUCOSE 93 mg/dL (70-99); POTASSIUM 3.9 MEQ/L (3.7-5.4); SAMPLE HEMOLYSIS CHECK 0; SAMPLE ICTERIC CHECK 0; SAMPLE LIPEMIA CHECK 0; SODIUM 141 MEQ/L (136-147); UREA NITROGEN (BUN) 21 mg/dL (9-23)
[2016-11-10 07:30] VITALS: BP 140/67
[2016-11-10 09:43] LABS: C DIFF TOXIN ND (NEGATIVE)
[2016-11-10 15:55] VITALS: BP 147/84
[2016-11-10 17:00] VITALS: BP 140/65
[2016-11-10 23:23] VITALS: BP 159/67
[2016-11-11 06:25] LABS: HEMATOCRIT 26.8 % (36.0-46.0); MCHC 31.3 G/DL (30.0-36.0); MCV 86.2 FL (83-99); MEAN PLAT.VOLUME 10.6 uM^3 (9.5-12.4); PLATELET COUNT 288 K/uL (156-360); RBC DIS.WIDTH-CV 18.1 % (11.8-14.6); RBC DIS.WIDTH-SD 56.2 % (39-53); RED BLOOD COUNT 3.11 M/uL (3.80-5.20)
[2016-11-11 06:50] LABS: ANION GAP 7 MEQ/L (2-14); CHLORIDE 104 MEQ/L (99-109); GFR ESTIMATE (CALCULATED) 28 mL/min/; GLUCOSE 96 mg/dL (70-99); POTASSIUM 3.5 MEQ/L (3.7-5.4); SAMPLE HEMOLYSIS CHECK 0; SAMPLE ICTERIC CHECK 0; SAMPLE LIPEMIA CHECK 0; SODIUM 138 MEQ/L (136-147); UREA NITROGEN (BUN) 20 mg/dL (9-23)
[2016-11-11 07:39] VITALS: BP 147/71
[2016-11-11 16:00] VITALS: BP 140/63
[2016-11-11 23:57] VITALS: BP 133/63
[2016-11-12 06:44] LABS: HEMATOCRIT 26.9 % (36.0-46.0); MCHC 30.9 G/DL (30.0-36.0); MCV 84.3 FL (83-99); MEAN PLAT.VOLUME 10.5 uM^3 (9.5-12.4); PLATELET COUNT 326 K/uL (156-360); RBC DIS.WIDTH-CV 17.9 % (11.8-14.6); RBC DIS.WIDTH-SD 54.4 % (39-53); RED BLOOD COUNT 3.19 M/uL (3.80-5.20); WHITE BLOOD COUNT 12.9 K/uL (4.1-10.2)
[2016-11-12 07:40] VITALS: BP 143/94
[2016-11-12 08:21] LABS: ANION GAP 8 MEQ/L (2-14); CHLORIDE 104 MEQ/L (99-109); GFR ESTIMATE (CALCULATED) 20 mL/min/; GLUCOSE 83 mg/dL (70-99); POTASSIUM 4.2 MEQ/L (3.7-5.4); SAMPLE HEMOLYSIS CHECK 0; SAMPLE ICTERIC CHECK 0; SAMPLE LIPEMIA CHECK 0; SODIUM 139 MEQ/L (136-147); UREA NITROGEN (BUN) 25 mg/dL (9-23)
[2016-11-12 15:37] VITALS: BP 113/56
[2016-11-12 19:55] VITALS: BP 142/66
[2016-11-13 00:16] VITALS: BP 121/58
[2016-11-13 06:25] LABS: HEMATOCRIT 27.2 % (36.0-46.0); MCH 25.6 PG (29.0-34.0); MCHC 30.1 G/DL (30.0-36.0); MEAN PLAT.VOLUME 10.5 uM^3 (9.5-12.4); PLATELET COUNT 330 K/uL (156-360); RBC DIS.WIDTH-CV 18.4 % (11.8-14.6); RBC DIS.WIDTH-SD 56.5 % (39-53); WHITE BLOOD COUNT 14.2 K/uL (4.1-10.2)
[2016-11-13 06:49] LABS: ANION GAP 10 MEQ/L (2-14); CHLORIDE 104 MEQ/L (99-109); GFR ESTIMATE (CALCULATED) 15 mL/min/; GLUCOSE 79 mg/dL (70-99); POTASSIUM 4.6 MEQ/L (3.7-5.4); SAMPLE HEMOLYSIS CHECK 0; SAMPLE ICTERIC CHECK 0; SAMPLE LIPEMIA CHECK 0; SODIUM 139 MEQ/L (136-147); UREA NITROGEN (BUN) 35 mg/dL (9-23)
[2016-11-13 07:53] VITALS: BP 144/72
[2016-11-13 16:10] VITALS: BP 128/68
[2016-11-13 17:24] LABS: ADD MIUA? NO; BILIRUBIN NEGATIVE; BLOOD NEGATIVE; COLOR STRAW ((YELLOW)); GLUCOSE (STRIP) NEGATIVE; KETONES NEGATIVE; LEUKOCYTES NEGATIVE; NITRITE NEGATIVE; PROTEIN (STRIP) NEGATIVE; SPECIFIC GRAVITY 1.005 (1.000-1.030); UROBILINOGEN 0.2 MG/DL (0.2-1.0)
[2016-11-14 00:49] VITALS: BP 137/71
[2016-11-14 06:14] LABS: HEMATOCRIT 25.8 % (36.0-46.0); MCH 26.2 PG (29.0-34.0); MCHC 30.6 G/DL (30.0-36.0); MCV 85.7 FL (83-99); MEAN PLAT.VOLUME 10.2 uM^3 (9.5-12.4); PLATELET COUNT 312 K/uL (156-360); RBC DIS.WIDTH-CV 18.6 % (11.8-14.6); RBC DIS.WIDTH-SD 57.8 % (39-53); RED BLOOD COUNT 3.01 M/uL (3.80-5.20)
[2016-11-14 06:34] LABS: ANION GAP 9 MEQ/L (2-14); CHLORIDE 106 MEQ/L (99-109); GFR ESTIMATE (CALCULATED) 13 mL/min/; GLUCOSE 86 mg/dL (70-99); POTASSIUM 4.5 MEQ/L (3.7-5.4); SAMPLE HEMOLYSIS CHECK 0; SAMPLE ICTERIC CHECK 0; SAMPLE LIPEMIA CHECK 0; SODIUM 138 MEQ/L (136-147); UREA NITROGEN (BUN) 38 mg/dL (9-23)
[2016-11-14 07:16] LABS: ABS NEUTROPHIL COUNT 11.5; ANISOCYTOSIS 1+; BAND NEUTROPHILS 2.6 % (0-8.0); BASOPHILS 0.9 %; BURR CELLS 1+; EOSINOPHIL ABS CT 0; INSTRUMENT ABS NEUTROPHIL CT 9.2 K/uL; LYMPHOCYTES 6.2 % (15.0-45.0); METAMYELOCYTES 2.6 %; OVALOCYTES 1+; PLAT.SUFFICIENCY ADEQUATE; POIKILOCYTOSIS 1+; SEG.NEUTROPHILS 79.8 % (46.0-76.0); SPHEROCYTES 1+
[2016-11-14 07:44] VITALS: BP 142/58
[2016-11-14 16:04] VITALS: BP 144/68
[2016-11-15 00:04] VITALS: BP 160/78
[2016-11-15 07:01] LABS: HEMATOCRIT 28.4 % (36.0-46.0); MCH 25.9 PG (29.0-34.0); MCHC 30.3 G/DL (30.0-36.0); MCV 85.5 FL (83-99); PLATELET COUNT 318 K/uL (156-360); RBC DIS.WIDTH-CV 18.6 % (11.8-14.6); RBC DIS.WIDTH-SD 56.7 % (39-53); RED BLOOD COUNT 3.32 M/uL (3.80-5.20); WHITE BLOOD COUNT 14.9 K/uL (4.1-10.2)
[2016-11-15 07:36] LABS: ANION GAP 9 MEQ/L (2-14); CHLORIDE 105 MEQ/L (99-109); GFR ESTIMATE (CALCULATED) 58 mL/min/; GLUCOSE 88 mg/dL (70-99); SAMPLE HEMOLYSIS CHECK 0; SAMPLE ICTERIC CHECK 0; SAMPLE LIPEMIA CHECK 0; SODIUM 142 MEQ/L (136-147); UREA NITROGEN (BUN) 16 mg/dL (9-23)
[2016-11-15 08:14] VITALS: BP 137/69
[2016-11-15 16:27] VITALS: BP 144/79
[2016-11-16 00:08] VITALS: BP 142/71
[2016-11-16 08:59] LABS: MCH 26.4 PG (29.0-34.0); MCV 85.4 FL (83-99); PLATELET COUNT 340 K/uL (156-360); RBC DIS.WIDTH-CV 18.6 % (11.8-14.6); RBC DIS.WIDTH-SD 56.9 % (39-53); RED BLOOD COUNT 3.63 M/uL (3.80-5.20); WHITE BLOOD COUNT 13.9 K/uL (4.1-10.2)
[2016-11-16 09:37] LABS: ANION GAP 10 MEQ/L (2-14); CHLORIDE 102 MEQ/L (99-109); GFR ESTIMATE (CALCULATED) > 59 mL/min/; GLUCOSE 152 mg/dL (70-99); POTASSIUM 3.8 MEQ/L (3.7-5.4); SAMPLE HEMOLYSIS CHECK 1; SAMPLE ICTERIC CHECK 0; SAMPLE LIPEMIA CHECK 0; SODIUM 140 MEQ/L (136-147); UREA NITROGEN (BUN) 9 mg/dL (9-23)
[2016-11-16] MEDS ORDERED: MUCINEX600 MG PO (11:03)
[2016-11-16] MEDS ORDERED: Ocean Nasal 0.65% BOTH NARES (11:06)
[2016-11-16] MEDS ORDERED: Cipro 0.2% Otic Solu BOTH EARS (11:06)
[2016-11-16 12:09] VITALS: BP 127/78
[2016-11-16 14:00] VITALS: BP 129/75
== END 2016-11-16 14:08 | DRG 871 ==
LOC: EME 22:37 → 4WEST 10-30 01:56 → 5EAST 10-30 01:56 → EDOF 10-30 01:56 → ENRESERV 10-30 01:57 → 4WEST 10-30 03:22 → ENRESERV 11-03 17:45 → 5EAST 11-03 20:46 → ENPENDDIS 11-16 → EDPENDDISTM 11-16 13:30 → 5EAST 11-16 14:08
PROVIDERS: Emergency Medicine; Hospitalist; Internal Medicine; Internal Medicine Critical Care Medicine; Internal Medicine Hematology & Oncology; Internal Medicine Nephrology; Internal Medicine Pulmonary Disease; Student in an Organized Health Care Education/Training Program
DX: A41.59 Other Gram-negative sepsis (principal); B96.1 Klebsiella pneumoniae [K. pneumoniae] as the cause of diseases classified elsewhere; R65.21 Severe sepsis with septic shock; N13.6 Pyonephrosis; N17.9 Acute kidney failure, unspecified; J96.01 Acute respiratory failure with hypoxia; C18.0 Malignant neoplasm of cecum; C78.6 Secondary malignant neoplasm of retroperitoneum and peritoneum; E83.42 Hypomagnesemia; E87.6 Hypokalemia; E86.1 Hypovolemia; E87.2 Acidosis; E87.70 Fluid overload, unspecified; J06.9 Acute upper respiratory infection, unspecified; H60.90 Unspecified otitis externa, unspecified ear; D64.81 Anemia due to antineoplastic chemotherapy; D50.0 Iron deficiency anemia secondary to blood loss (chronic); D64.89 Other specified anemias; J98.11 Atelectasis; J90 Pleural effusion, not elsewhere classified; I12.9 Hypertensive chronic kidney disease with stage 1 through stage 4 chronic kidney disease, or unspecified chronic kidney disease; N18.3 Chronic kidney disease, stage 3 (moderate); I08.1 Rheumatic disorders of both mitral and tricuspid valves; I27.2 Other secondary pulmonary hypertension; J44.9 Chronic obstructive pulmonary disease, unspecified; G47.33 Obstructive sleep apnea (adult) (pediatric); R31.9 Hematuria, unspecified; R19.7 Diarrhea, unspecified; R55 Syncope and collapse; R60.0 Localized edema; R61 Generalized hyperhidrosis; M75.01 Adhesive capsulitis of right shoulder; G43.909 Migraine, unspecified, not intractable, without status migrainosus; K21.9 Gastro-esophageal reflux disease without esophagitis; G40.89 Other seizures; E78.5 Hyperlipidemia, unspecified; E03.9 Hypothyroidism, unspecified; G89.29 Other chronic pain; M54.9 Dorsalgia, unspecified; E66.9 Obesity, unspecified; F32.9 Major depressive disorder, single episode, unspecified; F41.9 Anxiety disorder, unspecified; Z96.651 Presence of right artificial knee joint; Z87.442 Personal history of urinary calculi; Z80.49 Family history of malignant neoplasm of other genital organs
CPT/HCPCS: 36600; 50433; 71010; 71020; 71250; 74000; 74176; 76770; 78582; 80048; 80048 91; 80053; 80069; 80202; 81003; 82570; 82728; 82803; 82948; 83540; 83605; 83690; 83735; 83880; 84100; 84132 91; 84300; 84466; 84484; 84550; 85025; 85025 91; 85027; 85610; 85730; 86850; 86900; 86901; 86920; 87040; 87077; 87086; 87186; 87493; 87641; 87801; 93005; 93306; 93970; 94010; 94640; 94640 76; 94660; 94799; 95819; 97530 GO; 97530 GP; 99202; 99281; 99285; A9540; A9567; C1769; J0360; J0692; J0696; J0744; J0881; J1644; J1756; J1815; J1940; J1956; J2250; J2270; J2310; J2405; J2920; J2930; J3010; J3370; J3475; J3480; J7030; J7040; J7050; J7120; P9016; P9045; Q0164; S0030

== ENCOUNTER → 2017-03-03 | Outpatient (CLI) | payer OTHER ==
[~2017-03-03] MED LIST changes: +ACID CONTROL150 MG PO; +CIPRO250 MG PO; +CLARITIN,ALAVAR10 MG PO; +Cipro 0.2% Otic Solu BOTH EARS; +ELIQUIS5 MG PO; +IBUPROFEN200 M1 PO; +KLOR-CON M2020 MEQ PO; +LOPERAMIDE2 MG PO; +MILK OF MAGN PO; +MUCINEX600 MG PO; +ONDANSETRON HCL4 MG PO; +Ocean Nasal 0.65% BOTH NARES; +PREDNISONE10 MG PO; +ROXICODONE5 MG PO
[2017-03-03 09:41] LABS: MCH 31.4 PG (29.0-34.0); MCHC 32.3 G/DL (30.0-36.0); MCV 97.5 FL (83-99); RBC DIS.WIDTH-CV 16.6 % (11.8-14.6); RBC DIS.WIDTH-SD 59.8 % (39-53); RED BLOOD COUNT 3.18 M/uL (3.80-5.20); WHITE BLOOD COUNT 10.8 K/uL (4.1-10.2)
[2017-03-03 09:47] LABS: INTER. NORMALIZED RATIO 1.3
[2017-03-03 09:50] LABS: PTT 29.7 SEC (25-37)
[2017-03-03 10:18] LABS: PLATELET COUNT 313 K/uL (156-360)
== END | disposition home or self-care (01) ==
LOC: OPR 08:32 → EDSTATUS 09:00 → OPR 09:00
PROVIDERS: Urology
PROC: 0T25X0Z Change Drainage Device in Kidney, External Approach (ICD-10-PCS; principal; 2017-03-03)
DX: T83.092A Other mechanical complication of nephrostomy catheter, initial encounter (principal); C79.9 Secondary malignant neoplasm of unspecified site; Z85.038 Personal history of other malignant neoplasm of large intestine; Z88.0 Allergy status to penicillin; Y84.8 Other medical procedures as the cause of abnormal reaction of the patient, or of later complication, without mention of misadventure at the time of the procedure
CPT/HCPCS: 50435; 74360; 76000; 85027; 85610; 85730; C1769; J0744; J3010

== ENCOUNTER 2017-04-01 22:23 | Inpatient (IN) | payer OTHER ==
[~2017-04-01] VITALS: Ht 152.4 cm; Wt 77.0 kg
[2017-04-01 23:23] LABS: HEMATOCRIT 32.9 % (36.0-46.0); HEMOGLOBIN 10.9 G/DL (11.9-15.5); MCH 31.4 PG (29.0-34.0); MCHC 33.1 G/DL (30.0-36.0); MCV 94.8 FL (83-99); PLATELET COUNT 418 K/uL (156-360); RBC DIS.WIDTH-CV 15.8 % (11.8-14.6); RBC DIS.WIDTH-SD 54.9 % (39-53); RED BLOOD COUNT 3.47 M/uL (3.80-5.20); WHITE BLOOD COUNT 14.3 K/uL (4.1-10.2)
[2017-04-01 23:29] LABS: ALBUMIN 4.2 g/dL (3.2-4.8); CHLORIDE 105 mEq/L (99-109); POTASSIUM 4.3 mEq/L (3.7-5.4); SODIUM 139 mEq/L (136-147)
[2017-04-01 23:32] LABS: GLUCOSE 152 mg/dL (70-99); TOTAL PROTEIN 7.8 g/dL (6.4-8.3)
[2017-04-01 23:34] LABS: TOTAL BILIRUBIN 0.8 mg/dL (0.0-1.0)
[2017-04-01 23:35] LABS: ALKALINE PHOSPHATASE 195 IU/L (3-129)
[2017-04-01 23:36] LABS: CREATININE 1.7 mg/dL (0.6-1.3); GFR ESTIMATE (CALCULATED) 31 mL/min/
[2017-04-01 23:37] LABS: AST (GOT) 30 IU/L (2-34); UREA NITROGEN (BUN) 23 mg/dL (9-23)
[2017-04-01 23:38] LABS: ALT (GPT) 29 IU/L (3-49)
[2017-04-02 04:00] LABS: APPEARANCE CLOUDY ((CLEAR)); BILIRUBIN NEGATIVE; BLOOD MODERATE; COLOR YELLOW ((YELLOW)); GLUCOSE (STRIP) NEGATIVE; KETONES NEGATIVE; LEUKOCYTES LARGE; NITRITE POSITIVE; PROTEIN (STRIP) >=500; SPECIFIC GRAVITY 1.015 (1.000-1.030); UROBILINOGEN 0.2 MG/DL (0.2-1.0)
[2017-04-02 04:20] LABS: BACTERIA RARE /HPF; EPITHELIAL CELLS 1+ /HPF; HYALINE CASTS 0-5 /LPF; MUCUS TRACE /LPF; RED BLOOD CELLS TNTC /HPF (0-5); UCUL ADDED? YES; WHITE BLOOD CELLS TNTC /HPF (0-5)
[2017-04-02 07:37] VITALS: BP 115/57
[2017-04-02] MEDS ORDERED: SYNTHROID150 MCG PO (13:21)
[2017-04-02] MEDS ORDERED: K-DUR10 MEQ PO (13:24)
[2017-04-02] MEDS ORDERED: EPIPEN ADU0.3 MG/0.3 IM (13:25)
[2017-04-02] MEDS ORDERED: PROTONIX40 MG PO (13:30)
[2017-04-02 13:40] LABS: BASOPHIL COUNT 0.1 K/uL (0-0.1); EOSINOPHIL (%) 2.9 % (0-5); EOSINOPHIL COUNT 0.3 K/uL (0-0.3); HEMATOCRIT 28.3 % (36.0-46.0); HEMOGLOBIN 9.3 G/DL (11.9-15.5); IMMATURE GRANULOCYTE (%) 3.2 % (0.0-0.7); LYMPHOCYTE COUNT 0.2 K/uL (1.0-2.8); MCH 31.7 PG (29.0-34.0); MCHC 32.9 G/DL (30.0-36.0); MCV 96.6 FL (83-99); MONOCYTE (%) 8.1 % (3-12); MONOCYTE COUNT 0.7 K/uL (0-0.8); NEUTROPHIL (%) 82.8 % (45-76); NEUTROPHIL COUNT 7.3 K/uL (1.8-6.4); RBC DIS.WIDTH-CV 16.2 % (11.8-14.6); RBC DIS.WIDTH-SD 58.4 % (39-53); RED BLOOD COUNT 2.93 M/uL (3.80-5.20); WHITE BLOOD COUNT 8.9 K/uL (4.1-10.2)
[2017-04-02 13:50] LABS: CHLORIDE 106 MEQ/L (99-109); SODIUM 138 MEQ/L (136-147)
[2017-04-02 13:55] LABS: CREATININE 1.7 MG/DL (0.6-1.3); GFR ESTIMATE (CALCULATED) 31 mL/min/; GLUCOSE 128 mg/dL (70-99); UREA NITROGEN (BUN) 20 mg/dL (9-23)
[2017-04-02 14:11] LABS: PLAT.SUFFICIENCY ADEQUATE; PLATELET COUNT UNABLE TO REPORT K/uL (156-360)
[2017-04-02 15:30] VITALS: BP 103/71
[2017-04-02 22:57] VITALS: BP 94/53
[2017-04-03 06:35] LABS: HEMOGLOBIN 8.1 G/DL (11.9-15.5); MCH 30.6 PG (29.0-34.0); MCHC 31.2 G/DL (30.0-36.0); MCV 98.1 FL (83-99); PLATELET COUNT 284 K/uL (156-360); RBC DIS.WIDTH-CV 16.5 % (11.8-14.6); RBC DIS.WIDTH-SD 59.3 % (39-53); RED BLOOD COUNT 2.65 M/uL (3.80-5.20); WHITE BLOOD COUNT 8.4 K/uL (4.1-10.2)
[2017-04-03 07:00] VITALS: BP 125/64
[2017-04-03 07:04] LABS: CHLORIDE 108 MEQ/L (99-109); CREATININE 1.9 MG/DL (0.6-1.3); GFR ESTIMATE (CALCULATED) 28 mL/min/; GLUCOSE 110 mg/dL (70-99); POTASSIUM 3.5 MEQ/L (3.7-5.4); SODIUM 140 MEQ/L (136-147); UREA NITROGEN (BUN) 23 mg/dL (9-23)
[2017-04-03 07:31] LABS: MAGNESIUM 1.4 mg/dl (1.3-2.7)
[2017-04-03 15:25] VITALS: BP 143/66
[2017-04-03 18:27] VITALS: BP 119/56
[2017-04-03 22:43] VITALS: BP 105/55
[2017-04-04 06:53] LABS: HEMOGLOBIN 8.3 G/DL (11.9-15.5); MCH 30.5 PG (29.0-34.0); MCHC 30.7 G/DL (30.0-36.0); MCV 99.3 FL (83-99); PLATELET COUNT 351 K/uL (156-360); RBC DIS.WIDTH-CV 16.7 % (11.8-14.6); RED BLOOD COUNT 2.72 M/uL (3.80-5.20); WHITE BLOOD COUNT 10.5 K/uL (4.1-10.2)
[2017-04-04 07:04] VITALS: BP 121/64
[2017-04-04 07:17] LABS: CHLORIDE 105 MEQ/L (99-109); CREATININE 1.6 MG/DL (0.6-1.3); GFR ESTIMATE (CALCULATED) 34 mL/min/; GLUCOSE 111 mg/dL (70-99); POTASSIUM 3.7 MEQ/L (3.7-5.4); SODIUM 139 MEQ/L (136-147); UREA NITROGEN (BUN) 22 mg/dL (9-23)
[2017-04-04 16:22] VITALS: BP 122/60
[2017-04-04 20:30] VITALS: BP 142/71
[2017-04-04 21:58] LABS: TROP-I INTERPRETATION NEGATIVE; TROPONIN-I 0.03 ng/mL (0.0-0.30)
[2017-04-05 07:09] LABS: HEMATOCRIT 26.4 % (36.0-46.0); HEMOGLOBIN 8.3 G/DL (11.9-15.5); MCH 30.7 PG (29.0-34.0); MCHC 31.4 G/DL (30.0-36.0); MCV 97.8 FL (83-99); PLATELET COUNT 382 K/uL (156-360); RBC DIS.WIDTH-CV 16.2 % (11.8-14.6); RBC DIS.WIDTH-SD 58.9 % (39-53); WHITE BLOOD COUNT 9.8 K/uL (4.1-10.2)
[2017-04-05 07:20] VITALS: BP 110/63
[2017-04-05 07:45] LABS: CHLORIDE 105 MEQ/L (99-109); CREATININE 1.2 MG/DL (0.6-1.3); GFR ESTIMATE (CALCULATED) 47 mL/min/; GLUCOSE 97 mg/dL (70-99); POTASSIUM 3.4 MEQ/L (3.7-5.4); SODIUM 141 MEQ/L (136-147); UREA NITROGEN (BUN) 21 mg/dL (9-23)
[2017-04-05 15:10] VITALS: BP 134/73
[2017-04-05 23:41] VITALS: BP 165/73
[2017-04-06 07:20] VITALS: BP 148/71
[2017-04-06 10:47] LABS: MCH 31.5 PG (29.0-34.0); MCHC 32.1 G/DL (30.0-36.0); MCV 97.9 FL (83-99); PLATELET COUNT 445 K/uL (156-360); RBC DIS.WIDTH-CV 15.9 % (11.8-14.6); RED BLOOD COUNT 2.86 M/uL (3.80-5.20); WHITE BLOOD COUNT 10.6 K/uL (4.1-10.2)
[2017-04-06 11:12] LABS: CHLORIDE 101 MEQ/L (99-109); CREATININE 0.9 MG/DL (0.6-1.3); GFR ESTIMATE (CALCULATED) > 59 mL/min/; GLUCOSE 104 mg/dL (70-99); MAGNESIUM 1.5 mg/dl (1.3-2.7); POTASSIUM 3.1 MEQ/L (3.7-5.4); SODIUM 139 MEQ/L (136-147); UREA NITROGEN (BUN) 14 mg/dL (9-23)
[2017-04-06 15:30] VITALS: BP 139/70
[2017-04-06 23:02] VITALS: BP 140/79
[2017-04-07 07:54] VITALS: BP 139/81
[2017-04-07 14:53] LABS: HEMATOCRIT 30.6 % (36.0-46.0); HEMOGLOBIN 9.8 G/DL (11.9-15.5); MCH 31.2 PG (29.0-34.0); MCV 97.5 FL (83-99); PLATELET COUNT 530 K/uL (156-360); RBC DIS.WIDTH-CV 15.9 % (11.8-14.6); RBC DIS.WIDTH-SD 57.5 % (39-53); RED BLOOD COUNT 3.14 M/uL (3.80-5.20); WHITE BLOOD COUNT 15.8 K/uL (4.1-10.2)
[2017-04-07 15:21] LABS: ALBUMIN 3.1 G/DL (3.2-4.8); ALKALINE PHOSPHATASE 111 IU/L (3-129); ALT (GPT) 3 IU/L (3-49); AST (GOT) 9 IU/L (2-34); CHLORIDE 101 MEQ/L (99-109); CREATININE 0.8 MG/DL (0.6-1.3); DIRECT BILIRUBIN 0.1 mg/dL (0.0-0.3); GFR ESTIMATE (CALCULATED) > 59 mL/min/; GLUCOSE 94 mg/dL (70-99); SODIUM 141 MEQ/L (136-147); TOTAL BILIRUBIN 0.4 MG/DL (0.0-1.0); UREA NITROGEN (BUN) 12 mg/dL (9-23)
[2017-04-07 15:22] LABS: MAGNESIUM 1.8 mg/dl (1.3-2.7); POTASSIUM 3.8 MEQ/L (3.7-5.4)
[2017-04-07 16:15] VITALS: BP 143/74
[2017-04-08 00:31] VITALS: BP 156/85
[2017-04-08 06:56] LABS: BASOPHIL COUNT 0.2 K/uL (0-0.1); EOSINOPHIL (%) 3.5 % (0-5); EOSINOPHIL COUNT 0.5 K/uL (0-0.3); HEMATOCRIT 29.5 % (36.0-46.0); HEMOGLOBIN 9.1 G/DL (11.9-15.5); IMMATURE GRANULOCYTE (%) 4.7 % (0.0-0.7); LYMPHOCYTE (%) 8.8 % (15-42); LYMPHOCYTE COUNT 1.3 K/uL (1.0-2.8); MCH 29.9 PG (29.0-34.0); MCHC 30.8 G/DL (30.0-36.0); MONOCYTE (%) 9.7 % (3-12); MONOCYTE COUNT 1.4 K/uL (0-0.8); NEUTROPHIL (%) 72.3 % (45-76); NEUTROPHIL COUNT 10.5 K/uL (1.8-6.4); PLATELET COUNT 554 K/uL (156-360); RBC DIS.WIDTH-CV 15.9 % (11.8-14.6); RBC DIS.WIDTH-SD 56.7 % (39-53); RED BLOOD COUNT 3.04 M/uL (3.80-5.20); WHITE BLOOD COUNT 14.5 K/uL (4.1-10.2)
[2017-04-08 07:13] LABS: ALBUMIN 2.8 G/DL (3.2-4.8); ALKALINE PHOSPHATASE 95 IU/L (3-129); ALT (GPT) 3 IU/L (3-49); AST (GOT) 10 IU/L (2-34); CHLORIDE 102 MEQ/L (99-109); CREATININE 0.7 MG/DL (0.6-1.3); GFR ESTIMATE (CALCULATED) > 59 mL/min/; GLUCOSE 110 mg/dL (70-99); POTASSIUM 3.6 MEQ/L (3.7-5.4); SODIUM 139 MEQ/L (136-147); TOTAL PROTEIN 5.5 G/DL (6.4-8.3); UREA NITROGEN (BUN) 10 mg/dL (9-23)
[2017-04-08 07:16] LABS: TOTAL BILIRUBIN 0.3 MG/DL (0.0-1.0)
[2017-04-08 07:25] VITALS: BP 153/79
[2017-04-08 12:41] LABS: IMM.RETIC FRACTION 37.7 % (3-19); IRON 45 MCG/DL (35-150); RETIC HGB EQUIVALENT 34.8 (28-36); RETICULOCYTE COUNT 1.1 % (0.5-1.8); TRANSFERRIN (TIBC) 223.7 mg/dL (215-380); TRANSFERRIN SATUR. 20 % (20-55)
[2017-04-08 12:55] LABS: FERRITIN 343 NG/ML (10-291)
[2017-04-08 13:37] LABS: FOLIC ACID (FOLATE) > 22.0 NG/ML (5.0-22.0)
[2017-04-08 16:47] VITALS: BP 125/76
[2017-04-08 23:38] VITALS: BP 154/72
[2017-04-09 06:04] LABS: BASOPHIL (%) 1.1 % (0-1); BASOPHIL COUNT 0.2 K/uL (0-0.1); EOSINOPHIL (%) 3.2 % (0-5); EOSINOPHIL COUNT 0.5 K/uL (0-0.3); HEMATOCRIT 29.4 % (36.0-46.0); HEMOGLOBIN 9.4 G/DL (11.9-15.5); LYMPHOCYTE COUNT 1.1 K/uL (1.0-2.8); MCH 31.2 PG (29.0-34.0); MCV 97.7 FL (83-99); MONOCYTE (%) 8.7 % (3-12); MONOCYTE COUNT 1.2 K/uL (0-0.8); NEUTROPHIL COUNT 10.3 K/uL (1.8-6.4); PLATELET COUNT 549 K/uL (156-360); RBC DIS.WIDTH-CV 16.1 % (11.8-14.6); RBC DIS.WIDTH-SD 58.3 % (39-53); RED BLOOD COUNT 3.01 M/uL (3.80-5.20)
[2017-04-09 06:29] LABS: CHLORIDE 103 MEQ/L (99-109); CREATININE 0.7 MG/DL (0.6-1.3); GFR ESTIMATE (CALCULATED) > 59 mL/min/; GLUCOSE 112 mg/dL (70-99); POTASSIUM 3.7 MEQ/L (3.7-5.4); PREALBUMIN 10.4 mg/dL (10-40); SODIUM 137 MEQ/L (136-147); UREA NITROGEN (BUN) 8 mg/dL (9-23)
[2017-04-09 07:45] VITALS: BP 159/97
[2017-04-09 07:56] LABS: CARCINOEMBR.ANTIGEN 16.8 NG/ML
[2017-04-09 10:00] LABS: PHOSPHORUS 2.7 mg/dL (2.5-4.9)
[2017-04-09 10:01] LABS: MAGNESIUM 1.5 mg/dl (1.3-2.7)
[2017-04-09 10:10] LABS: TRIGLYCERIDES 176 MG/DL (Normal: <150)
[2017-04-09 16:32] VITALS: BP 142/73
[2017-04-09 23:01] VITALS: BP 120/59
[2017-04-10 04:05] LABS: BASOPHIL (%) 0.9 % (0-1); BASOPHIL COUNT 0.2 K/uL (0-0.1); EOSINOPHIL (%) 2.7 % (0-5); EOSINOPHIL COUNT 0.4 K/uL (0-0.3); HEMATOCRIT 29.1 % (36.0-46.0); HEMOGLOBIN 9.4 G/DL (11.9-15.5); LYMPHOCYTE (%) 7.8 % (15-42); LYMPHOCYTE COUNT 1.2 K/uL (1.0-2.8); MCH 31.2 PG (29.0-34.0); MCHC 32.3 G/DL (30.0-36.0); MCV 96.7 FL (83-99); MONOCYTE (%) 8.7 % (3-12); MONOCYTE COUNT 1.4 K/uL (0-0.8); NEUTROPHIL (%) 74.9 % (45-76); NEUTROPHIL COUNT 11.9 K/uL (1.8-6.4); PLATELET COUNT 568 K/uL (156-360); RBC DIS.WIDTH-CV 16.5 % (11.8-14.6); RBC DIS.WIDTH-SD 58.1 % (39-53); RED BLOOD COUNT 3.01 M/uL (3.80-5.20); WHITE BLOOD COUNT 15.9 K/uL (4.1-10.2)
[2017-04-10 04:38] LABS: ALBUMIN 2.7 g/dL (3.2-4.8); CHLORIDE 105 mEq/L (99-109); POTASSIUM 3.5 mEq/L (3.7-5.4); SODIUM 139 mEq/L (136-147)
[2017-04-10 04:39] LABS: MAGNESIUM 1.8 mg/dL (1.3-2.7)
[2017-04-10 04:40] LABS: GLUCOSE 132 mg/dL (70-99)
[2017-04-10 04:42] LABS: TOTAL BILIRUBIN 0.2 mg/dL (0.0-1.0)
[2017-04-10 04:44] LABS: ALKALINE PHOSPHATASE 96 IU/L (3-129); CREATININE 0.7 mg/dL (0.6-1.3); GFR ESTIMATE (CALCULATED) > 59 mL/min/; PHOSPHORUS 3.4 mg/dL (2.5-4.9)
[2017-04-10 04:45] LABS: UREA NITROGEN (BUN) 11 mg/dL (9-23)
[2017-04-10 04:46] LABS: AST (GOT) 10 IU/L (2-34)
[2017-04-10 04:47] LABS: ALT (GPT) < 3 IU/L (3-49)
[2017-04-10 08:00] VITALS: BP 121/74
[2017-04-10 16:30] VITALS: BP 119/62
[2017-04-10 23:32] VITALS: BP 105/58
[2017-04-11 03:16] LABS: CA 19-9+ 6752 U/mL (<34); CA 27.29+ 349 U/mL (<38)
[2017-04-11 06:28] LABS: INTER. NORMALIZED RATIO 1.2
[2017-04-11 06:31] LABS: PTT 40.3 SEC (25-37)
[2017-04-11 06:34] LABS: CHLORIDE 110 MEQ/L (99-109); CREATININE 0.6 MG/DL (0.6-1.3); GFR ESTIMATE (CALCULATED) > 59 mL/min/; GLUCOSE 132 mg/dL (70-99); POTASSIUM 3.9 MEQ/L (3.7-5.4); SODIUM 144 MEQ/L (136-147)
[2017-04-11 06:36] LABS: MAGNESIUM 2.3 mg/dl (1.3-2.7); PHOSPHORUS 4.7 mg/dL (2.5-4.9); UREA NITROGEN (BUN) 21 mg/dL (9-23)
[2017-04-11 08:00] VITALS: BP 112/60
[2017-04-11 16:00] VITALS: BP 135/82
[2017-04-11 23:18] VITALS: BP 107/69
[2017-04-12 06:37] LABS: BASOPHIL (%) 1.2 % (0-1); BASOPHIL COUNT 0.2 K/uL (0-0.1); EOSINOPHIL (%) 3.4 % (0-5); EOSINOPHIL COUNT 0.5 K/uL (0-0.3); HEMATOCRIT 28.8 % (36.0-46.0); HEMOGLOBIN 8.8 G/DL (11.9-15.5); IMMATURE GRANULOCYTE (%) 3.3 % (0.0-0.7); LYMPHOCYTE (%) 8.2 % (15-42); LYMPHOCYTE COUNT 1.1 K/uL (1.0-2.8); MCH 30.7 PG (29.0-34.0); MCHC 30.6 G/DL (30.0-36.0); MCV 100.3 FL (83-99); MONOCYTE (%) 10.1 % (3-12); MONOCYTE COUNT 1.4 K/uL (0-0.8); NEUTROPHIL (%) 73.8 % (45-76); NEUTROPHIL COUNT 10.1 K/uL (1.8-6.4); PLATELET COUNT 556 K/uL (156-360); RBC DIS.WIDTH-CV 17.2 % (11.8-14.6); RBC DIS.WIDTH-SD 62.4 % (39-53); RED BLOOD COUNT 2.87 M/uL (3.80-5.20); WHITE BLOOD COUNT 13.7 K/uL (4.1-10.2)
[2017-04-12 07:32] VITALS: BP 146/70
[2017-04-12 08:33] LABS: ALBUMIN 2.6 G/DL (3.2-4.8); ALKALINE PHOSPHATASE 80 IU/L (3-129); AST (GOT) 13 IU/L (2-34); CHLORIDE 114 MEQ/L (99-109); CREATININE 0.7 MG/DL (0.6-1.3); GFR ESTIMATE (CALCULATED) > 59 mL/min/; GLUCOSE 109 mg/dL (70-99); PHOSPHORUS 4.3 mg/dL (2.5-4.9); POTASSIUM 4.3 MEQ/L (3.7-5.4); PREALBUMIN 11.6 mg/dL (10-40); SODIUM 145 MEQ/L (136-147); TOTAL PROTEIN 5.5 G/DL (6.4-8.3); TRIGLYCERIDES 227 MG/DL (Normal: <150); UREA NITROGEN (BUN) 26 mg/dL (9-23)
[2017-04-12 08:39] LABS: ALT (GPT) < 3 IU/L (3-49); MAGNESIUM 1.8 mg/dl (1.3-2.7); TOTAL BILIRUBIN 0.2 MG/DL (0.0-1.0)
[2017-04-12 10:02] LABS: 24 HR VOLUME 1300 MLS; URINE UREA NITROGEN 3783 MG/24 HR
[2017-04-12 10:53] VITALS: BP 141/76
[2017-04-12 18:05] VITALS: BP 151/72
[2017-04-12 19:46] VITALS: BP 123/58
[2017-04-12 23:06] VITALS: BP 125/65
[2017-04-13 03:18] VITALS: BP 137/70
[2017-04-13 06:20] LABS: HEMATOCRIT 25.8 % (36.0-46.0); HEMOGLOBIN 7.7 G/DL (11.9-15.5); MCH 30.6 PG (29.0-34.0); MCHC 29.8 G/DL (30.0-36.0); MCV 102.4 FL (83-99); PLATELET COUNT 469 K/uL (156-360); RBC DIS.WIDTH-CV 17.1 % (11.8-14.6); RBC DIS.WIDTH-SD 64.5 % (39-53); RED BLOOD COUNT 2.52 M/uL (3.80-5.20); WHITE BLOOD COUNT 17.3 K/uL (4.1-10.2)
[2017-04-13 06:46] LABS: CHLORIDE 114 MEQ/L (99-109); CREATININE 0.7 MG/DL (0.6-1.3); GFR ESTIMATE (CALCULATED) > 59 mL/min/; GLUCOSE 112 mg/dL (70-99); PHOSPHORUS 3.8 mg/dL (2.5-4.9); POTASSIUM 4.4 MEQ/L (3.7-5.4); SODIUM 145 MEQ/L (136-147); UREA NITROGEN (BUN) 28 mg/dL (9-23)
[2017-04-13 06:47] LABS: MAGNESIUM 1.4 mg/dl (1.3-2.7)
[2017-04-13 07:07] VITALS: BP 146/76
[2017-04-13 11:53] VITALS: BP 134/64
[2017-04-13 14:07] LABS: HEMATOCRIT 26.8 % (36.0-46.0); HEMOGLOBIN 8.2 G/DL (11.9-15.5); MCV 100.8 FL (83-99)
[2017-04-13 15:15] VITALS: BP 120/73
[2017-04-13 19:47] VITALS: BP 122/63
[2017-04-14] VITALS (7 sets, daily range): BP systolic 120–149; BP diastolic 63–78
[2017-04-14 00:45] LABS: HEMATOCRIT 25.2 % (36.0-46.0); HEMOGLOBIN 7.7 G/DL (11.9-15.5); MCV 101.6 FL (83-99)
[2017-04-14 03:23] LABS: HEMATOCRIT 24.4 % (36.0-46.0); HEMOGLOBIN 7.5 G/DL (11.9-15.5); MCH 31.4 PG (29.0-34.0); MCHC 30.7 G/DL (30.0-36.0); MCV 102.1 FL (83-99); PLATELET COUNT 448 K/uL (156-360); RBC DIS.WIDTH-CV 17.2 % (11.8-14.6); RBC DIS.WIDTH-SD 64.8 % (39-53); RED BLOOD COUNT 2.39 M/uL (3.80-5.20); WHITE BLOOD COUNT 13.5 K/uL (4.1-10.2)
[2017-04-14 04:03] LABS: CHLORIDE 111 mEq/L (99-109); POTASSIUM 4.1 mEq/L (3.7-5.4); SODIUM 142 mEq/L (136-147)
[2017-04-14 04:05] LABS: MAGNESIUM 1.3 mg/dL (1.3-2.7)
[2017-04-14 04:06] LABS: GLUCOSE 108 mg/dL (70-99)
[2017-04-14 04:09] LABS: CREATININE 0.6 mg/dL (0.6-1.3); GFR ESTIMATE (CALCULATED) > 59 mL/min/; PHOSPHORUS 4.1 mg/dL (2.5-4.9)
[2017-04-14 04:10] LABS: UREA NITROGEN (BUN) 28 mg/dL (9-23)
[2017-04-15 03:48] VITALS: BP 100/63
[2017-04-15 06:49] LABS: HEMATOCRIT 24.3 % (36.0-46.0); HEMOGLOBIN 7.4 G/DL (11.9-15.5); MCH 30.8 PG (29.0-34.0); MCHC 30.5 G/DL (30.0-36.0); MCV 101.3 FL (83-99); PLATELET COUNT 401 K/uL (156-360); RBC DIS.WIDTH-CV 17.1 % (11.8-14.6); RBC DIS.WIDTH-SD 64.4 % (39-53); WHITE BLOOD COUNT 10.8 K/uL (4.1-10.2)
[2017-04-15 07:00] VITALS: BP 122/56
[2017-04-15 07:22] LABS: CHLORIDE 103 MEQ/L (99-109); CREATININE 0.5 MG/DL (0.6-1.3); GFR ESTIMATE (CALCULATED) > 59 mL/min/; GLUCOSE 110 mg/dL (70-99); PHOSPHORUS 4.3 mg/dL (2.5-4.9); POTASSIUM 4.2 MEQ/L (3.7-5.4); SODIUM 135 MEQ/L (136-147); UREA NITROGEN (BUN) 24 mg/dL (9-23)
[2017-04-15 07:26] LABS: MAGNESIUM 2.1 mg/dl (1.3-2.7)
[2017-04-15 11:20] VITALS: BP 128/75
[2017-04-15 15:22] VITALS: BP 114/65
[2017-04-15 18:50] VITALS: BP 128/72
[2017-04-15 22:43] VITALS: BP 123/79
[2017-04-16] VITALS (7 sets, daily range): BP systolic 98–125; BP diastolic 51–69
[2017-04-16 06:47] LABS: HEMATOCRIT 23.6 % (36.0-46.0); HEMOGLOBIN 7.3 G/DL (11.9-15.5); MCH 31.5 PG (29.0-34.0); MCHC 30.9 G/DL (30.0-36.0); MCV 101.7 FL (83-99); PLATELET COUNT 374 K/uL (156-360); RED BLOOD COUNT 2.32 M/uL (3.80-5.20); WHITE BLOOD COUNT 9.7 K/uL (4.1-10.2)
[2017-04-16 07:12] LABS: CHLORIDE 104 MEQ/L (99-109); CREATININE 0.5 MG/DL (0.6-1.3); GFR ESTIMATE (CALCULATED) > 59 mL/min/; GLUCOSE 111 mg/dL (70-99); MAGNESIUM 1.9 mg/dl (1.3-2.7); PHOSPHORUS 4.3 mg/dL (2.5-4.9); POTASSIUM 4.4 MEQ/L (3.7-5.4); SODIUM 139 MEQ/L (136-147); UREA NITROGEN (BUN) 24 mg/dL (9-23)
[2017-04-17] VITALS (9 sets, daily range): BP systolic 101–139; BP diastolic 54–66
[2017-04-17 06:03] LABS: HEMOGLOBIN 7.2 G/DL (11.9-15.5); MCH 30.8 PG (29.0-34.0); MCV 102.6 FL (83-99); PLATELET COUNT 389 K/uL (156-360); RBC DIS.WIDTH-CV 16.7 % (11.8-14.6); RBC DIS.WIDTH-SD 63.5 % (39-53); RED BLOOD COUNT 2.34 M/uL (3.80-5.20); WHITE BLOOD COUNT 7.9 K/uL (4.1-10.2)
[2017-04-17 06:38] LABS: CHLORIDE 106 MEQ/L (99-109); CREATININE 0.5 MG/DL (0.6-1.3); GFR ESTIMATE (CALCULATED) > 59 mL/min/; GLUCOSE 120 mg/dL (70-99); MAGNESIUM 1.8 mg/dl (1.3-2.7); PHOSPHORUS 4.9 mg/dL (2.5-4.9); POTASSIUM 4.4 MEQ/L (3.7-5.4); SODIUM 140 MEQ/L (136-147); UREA NITROGEN (BUN) 20 mg/dL (9-23)
[2017-04-17 11:52] LABS: IRON 57 MCG/DL (35-150); TRANSFERRIN (TIBC) 190.6 mg/dL (215-380); TRANSFERRIN SATUR. 30 % (20-55)
[2017-04-17 12:19] LABS: FOLIC ACID (FOLATE) > 22.0 NG/ML (5.0-22.0)
[2017-04-17 12:27] LABS: FERRITIN 154 NG/ML (10-291)
[2017-04-18 06:28] LABS: HEMATOCRIT 28.7 % (36.0-46.0); MCH 30.9 PG (29.0-34.0); MCHC 31.4 G/DL (30.0-36.0); MCV 98.6 FL (83-99); PLATELET COUNT 454 K/uL (156-360); RBC DIS.WIDTH-CV 17.1 % (11.8-14.6); RBC DIS.WIDTH-SD 62.2 % (39-53); RED BLOOD COUNT 2.91 M/uL (3.80-5.20); WHITE BLOOD COUNT 10.2 K/uL (4.1-10.2)
[2017-04-18 06:41] LABS: CHLORIDE 102 MEQ/L (99-109); CREATININE 0.5 MG/DL (0.6-1.3); GFR ESTIMATE (CALCULATED) > 59 mL/min/; GLUCOSE 161 mg/dL (70-99); MAGNESIUM 1.9 mg/dl (1.3-2.7); PHOSPHORUS 4.5 mg/dL (2.5-4.9); POTASSIUM 4.3 MEQ/L (3.7-5.4); SODIUM 139 MEQ/L (136-147); UREA NITROGEN (BUN) 17 mg/dL (9-23)
[2017-04-18 06:55] VITALS: BP 164/77
[2017-04-18 15:43] VITALS: BP 159/61
[2017-04-19 00:19] VITALS: BP 141/74
[2017-04-19 07:57] VITALS: BP 115/72
[2017-04-19 09:09] LABS: BASOPHIL (%) 1.7 % (0-1); BASOPHIL COUNT 0.2 K/uL (0-0.1); EOSINOPHIL (%) 3.8 % (0-5); EOSINOPHIL COUNT 0.4 K/uL (0-0.3); HEMATOCRIT 30.1 % (36.0-46.0); HEMOGLOBIN 9.4 G/DL (11.9-15.5); IMMATURE GRANULOCYTE (%) 1.6 % (0.0-0.7); LYMPHOCYTE (%) 10.5 % (15-42); MCH 31.3 PG (29.0-34.0); MCHC 31.2 G/DL (30.0-36.0); MCV 100.3 FL (83-99); MONOCYTE (%) 11.8 % (3-12); MONOCYTE COUNT 1.1 K/uL (0-0.8); NEUTROPHIL (%) 70.6 % (45-76); NEUTROPHIL COUNT 6.8 K/uL (1.8-6.4); PLATELET COUNT 451 K/uL (156-360); RBC DIS.WIDTH-CV 16.9 % (11.8-14.6); RBC DIS.WIDTH-SD 62.6 % (39-53); WHITE BLOOD COUNT 9.6 K/uL (4.1-10.2)
[2017-04-19 09:39] LABS: ALBUMIN 2.7 G/DL (3.2-4.8); ALKALINE PHOSPHATASE 171 IU/L (3-129); ALT (GPT) 11 IU/L (3-49); AST (GOT) 20 IU/L (2-34); CHLORIDE 105 MEQ/L (99-109); CREATININE 0.6 MG/DL (0.6-1.3); DIRECT BILIRUBIN 0.1 mg/dL (0.0-0.3); GFR ESTIMATE (CALCULATED) > 59 mL/min/; GLUCOSE 132 mg/dL (70-99); PHOSPHORUS 4.9 mg/dL (2.5-4.9); POTASSIUM 4.4 MEQ/L (3.7-5.4); SODIUM 139 MEQ/L (136-147); TOTAL BILIRUBIN 0.4 MG/DL (0.0-1.0); TOTAL PROTEIN 5.8 G/DL (6.4-8.3); TRIGLYCERIDES 251 MG/DL (Normal: <150); UREA NITROGEN (BUN) 18 mg/dL (9-23)
[2017-04-19 11:16] LABS: PREALBUMIN 16.5 mg/dL (10-40)
[2017-04-19 15:21] VITALS: BP 116/62
[2017-04-19 23:41] VITALS: BP 150/74
[2017-04-20 06:22] LABS: CHLORIDE 107 MEQ/L (99-109); CREATININE 0.5 MG/DL (0.6-1.3); GFR ESTIMATE (CALCULATED) > 59 mL/min/; GLUCOSE 113 mg/dL (70-99); POTASSIUM 4.2 MEQ/L (3.7-5.4); SODIUM 140 MEQ/L (136-147); UREA NITROGEN (BUN) 17 mg/dL (9-23)
[2017-04-20 07:04] VITALS: BP 130/74
[2017-04-20 23:26] VITALS: BP 153/77
[2017-04-21 06:41] LABS: HEMATOCRIT 29.6 % (36.0-46.0); MCH 30.8 PG (29.0-34.0); MCHC 30.4 G/DL (30.0-36.0); MCV 101.4 FL (83-99); PLATELET COUNT 426 K/uL (156-360); RBC DIS.WIDTH-CV 16.5 % (11.8-14.6); RBC DIS.WIDTH-SD 61.5 % (39-53); RED BLOOD COUNT 2.92 M/uL (3.80-5.20); WHITE BLOOD COUNT 9.8 K/uL (4.1-10.2)
[2017-04-21 07:01] LABS: CHLORIDE 105 MEQ/L (99-109); CREATININE 0.5 MG/DL (0.6-1.3); GFR ESTIMATE (CALCULATED) > 59 mL/min/; GLUCOSE 106 mg/dL (70-99); MAGNESIUM 2.1 mg/dl (1.3-2.7); PHOSPHORUS 4.3 mg/dL (2.5-4.9); POTASSIUM 4.8 MEQ/L (3.7-5.4); SODIUM 137 MEQ/L (136-147); UREA NITROGEN (BUN) 23 mg/dL (9-23)
[2017-04-21 07:16] VITALS: BP 167/85
[2017-04-21 16:28] VITALS: BP 119/85
[2017-04-21 23:46] VITALS: BP 122/67
[2017-04-22 05:40] LABS: HEMATOCRIT 29.2 % (36.0-46.0); HEMOGLOBIN 9.1 G/DL (11.9-15.5); MCH 31.4 PG (29.0-34.0); MCHC 31.2 G/DL (30.0-36.0); MCV 100.7 FL (83-99); PLATELET COUNT 436 K/uL (156-360); RBC DIS.WIDTH-CV 16.4 % (11.8-14.6); WHITE BLOOD COUNT 9.3 K/uL (4.1-10.2)
[2017-04-22 06:08] LABS: CHLORIDE 105 MEQ/L (99-109); CREATININE 0.5 MG/DL (0.6-1.3); GFR ESTIMATE (CALCULATED) > 59 mL/min/; GLUCOSE 135 mg/dL (70-99); MAGNESIUM 2.4 mg/dl (1.3-2.7); PHOSPHORUS 5.1 mg/dL (2.5-4.9); POTASSIUM 4.2 MEQ/L (3.7-5.4); SODIUM 138 MEQ/L (136-147); UREA NITROGEN (BUN) 27 mg/dL (9-23)
[2017-04-22 07:55] VITALS: BP 116/69
[2017-04-22 16:01] VITALS: BP 140/72
[2017-04-23 00:13] VITALS: BP 130/67
[2017-04-23 06:30] LABS: HEMATOCRIT 28.3 % (36.0-46.0); HEMOGLOBIN 8.9 G/DL (11.9-15.5); MCH 31.6 PG (29.0-34.0); MCHC 31.4 G/DL (30.0-36.0); MCV 100.4 FL (83-99); PLATELET COUNT 510 K/uL (156-360); RBC DIS.WIDTH-CV 16.4 % (11.8-14.6); RBC DIS.WIDTH-SD 59.6 % (39-53); RED BLOOD COUNT 2.82 M/uL (3.80-5.20); WHITE BLOOD COUNT 10.3 K/uL (4.1-10.2)
[2017-04-23 06:55] VITALS: BP 142/77
[2017-04-23 07:08] LABS: CHLORIDE 104 MEQ/L (99-109); CREATININE 0.7 MG/DL (0.6-1.3); GFR ESTIMATE (CALCULATED) > 59 mL/min/; PHOSPHORUS 5.1 mg/dL (2.5-4.9); POTASSIUM 4.6 MEQ/L (3.7-5.4); SODIUM 140 MEQ/L (136-147); UREA NITROGEN (BUN) 23 mg/dL (9-23)
[2017-04-23 07:09] LABS: GLUCOSE 94 mg/dL (70-99); MAGNESIUM 1.7 mg/dl (1.3-2.7)
[2017-04-23] MEDS ORDERED: BACTRIM,SEPT1 TABLE1 PO (11:30)
== END 2017-04-23 13:18 | disposition home health service (06) | DRG 326 ==
LOC: EME 22:23 → EDOF 04-02 03:51 → 5EAST 04-02 03:51 → ENRESERV 04-02 03:54 → 5EAST 04-02 05:40
PROVIDERS: Hospitalist; Internal Medicine; Internal Medicine Hematology & Oncology; Physician Assistant; Surgery
DX: C19 Malignant neoplasm of rectosigmoid junction (principal); C78.6 Secondary malignant neoplasm of retroperitoneum and peritoneum; C78.4 Secondary malignant neoplasm of small intestine; N17.9 Acute kidney failure, unspecified; T83.022A Displacement of nephrostomy catheter, initial encounter; Y83.3 Surgical operation with formation of external stoma as the cause of abnormal reaction of the patient, or of later complication, without mention of misadventure at the time of the procedure; N99.521 Infection of incontinent external stoma of urinary tract; N13.6 Pyonephrosis; B95.61 Methicillin susceptible Staphylococcus aureus infection as the cause of diseases classified elsewhere; E44.0 Moderate protein-calorie malnutrition; R18.8 Other ascites; D63.0 Anemia in neoplastic disease; I81 Portal vein thrombosis; K56.7 Ileus, unspecified; E83.42 Hypomagnesemia; E87.6 Hypokalemia; J98.11 Atelectasis; R09.02 Hypoxemia; E03.9 Hypothyroidism, unspecified; E78.00 Pure hypercholesterolemia, unspecified; E78.5 Hyperlipidemia, unspecified; R91.1 Solitary pulmonary nodule; E66.9 Obesity, unspecified; Z68.34 Body mass index [BMI] 34.0-34.9, adult; K21.9 Gastro-esophageal reflux disease without esophagitis; G47.33 Obstructive sleep apnea (adult) (pediatric); I10 Essential (primary) hypertension; F41.9 Anxiety disorder, unspecified; F32.9 Major depressive disorder, single episode, unspecified; G43.909 Migraine, unspecified, not intractable, without status migrainosus; G89.29 Other chronic pain; Z86.718 Personal history of other venous thrombosis and embolism; Z79.01 Long term (current) use of anticoagulants; Z92.21 Personal history of antineoplastic chemotherapy; Z87.442 Personal history of urinary calculi; Z96.651 Presence of right artificial knee joint; Z80.8 Family history of malignant neoplasm of other organs or systems; Z80.42 Family history of malignant neoplasm of prostate
CPT/HCPCS: 50433; 71045; 74018; 74019; 74176; 74249; 74270; 76937; 80048; 80053; 80076; 81003; 81050; 82248; 82378; 82607; 82728; 82746; 83540; 83605; 83735; 84100; 84134; 84466; 84478; 84484; 84540; 84630 90; 85014; 85018; 85025; 85027; 85046; 85610; 85730; 86300 90; 86301 90; 86304; 86850; 86900; 86901; 86920; 87040; 87077; 87086; 87147; 87186; 93005; 94760; 94799; 97530 GO; 97530 GP; 99202; 99281; 99285; J0131; J0330; J0690; J0696; J1100; J1170; J1200; J1885; J2250; J2270; J2405; J2710; J2765; J3010; J3475; J3480; J7030; J7040; P9016; S0028; S0074

== ENCOUNTER 2017-05-11 09:52 | Inpatient (IN) | payer OTHER, MEDICARE ==
[~2017-05-11] VITALS: Ht 152.4 cm; Wt 73.0 kg
[~2017-05-11 09:52] MED LIST changes: +BACTRIM,SEPT1 TABLE1 PO; +EPIPEN ADU0.3 MG/0.3 IM; +PROTONIX40 MG PO; +SYNTHROID150 MCG PO
[2017-05-11 11:35] LABS: SOURCE SWAB
[2017-05-11 11:37] LABS: APPEARANCE TURBID ((CLEAR)); BILIRUBIN NEGATIVE; BLOOD LARGE; COLOR YELLOW ((YELLOW)); GLUCOSE (STRIP) NEGATIVE; KETONES NEGATIVE; LEUKOCYTES MODERATE; NITRITE NEGATIVE; PROTEIN (STRIP) 100; SPECIFIC GRAVITY 1.012 (1.000-1.030); UROBILINOGEN 0.2 MG/DL (0.2-1.0)
[2017-05-11 11:39] LABS: APPEARANCE TURBID ((CLEAR)); BILIRUBIN NEGATIVE; BLOOD LARGE; COLOR AMBER ((YELLOW)); GLUCOSE (STRIP) NEGATIVE; KETONES NEGATIVE; LEUKOCYTES LARGE; NITRITE NEGATIVE; PROTEIN (STRIP) >=500; UROBILINOGEN 0.2 MG/DL (0.2-1.0)
[2017-05-11 11:44] LABS: HEMATOCRIT 31.3 % (36.0-46.0); HEMOGLOBIN 10.2 G/DL (11.9-15.5); MCH 30.7 PG (29.0-34.0); MCHC 32.6 G/DL (30.0-36.0); RBC DIS.WIDTH-CV 14.2 % (11.8-14.6); RBC DIS.WIDTH-SD 49.8 % (39-53); RED BLOOD COUNT 3.32 M/uL (3.80-5.20); WHITE BLOOD COUNT 13.4 K/uL (4.1-10.2)
[2017-05-11 11:45] LABS: MCV 94.3 FL (83-99)
[2017-05-11 11:48] LABS: ALBUMIN 3.3 g/dL (3.2-4.8)
[2017-05-11 11:49] LABS: CHLORIDE 104 mEq/L (99-109); POTASSIUM 2.9 mEq/L (3.7-5.4); SODIUM 135 mEq/L (136-147)
[2017-05-11 11:51] LABS: GLUCOSE 120 mg/dL (70-99); TOTAL PROTEIN 6.7 g/dL (6.4-8.3)
[2017-05-11 11:53] LABS: TOTAL BILIRUBIN 1.1 mg/dL (0.0-1.0)
[2017-05-11 11:54] LABS: ALKALINE PHOSPHATASE 95 IU/L (3-129)
[2017-05-11 11:55] LABS: CREATININE 1.2 mg/dL (0.6-1.3); GFR ESTIMATE (CALCULATED) 47 mL/min/
[2017-05-11 11:55] LABS: RED BLOOD CELLS TNTC /HPF (0-5)
[2017-05-11 11:56] LABS: AST (GOT) 24 IU/L (2-34); UREA NITROGEN (BUN) 16 mg/dL (9-23)
[2017-05-11 11:57] LABS: ALT (GPT) 14 IU/L (3-49)
[2017-05-11 11:57] LABS: RED BLOOD CELLS TNTC /HPF (0-5)
[2017-05-11 11:59] LABS: AMORPHOUS URATES CRYSTALS 2+
[2017-05-11 12:16] LABS: BASOPHIL (%) 0.1 % (0-1); EOSINOPHIL (%) 1.6 % (0-5); EOSINOPHIL COUNT 0.2 K/uL (0-0.3); IMMATURE GRANULOCYTE (%) 0.4 % (0.0-0.7); LYMPHOCYTE (%) 4.4 % (15-42); LYMPHOCYTE COUNT 0.6 K/uL (1.0-2.8); MONOCYTE (%) 9.7 % (3-12); MONOCYTE COUNT 1.3 K/uL (0-0.8); NEUTROPHIL (%) 83.8 % (45-76); NEUTROPHIL COUNT 11.3 K/uL (1.8-6.4); PLAT.SUFFICIENCY ADEQUATE
[2017-05-11 12:18] LABS: PLATELET COUNT 351 K/uL (156-360)
[2017-05-11 17:21] LABS: INTER. NORMALIZED RATIO 1.7
[2017-05-11 17:24] LABS: PTT 30.5 SEC (25-37)
[2017-05-11 19:12] VITALS: BP 133/63
[2017-05-11 23:32] VITALS: BP 110/53
[2017-05-12 04:10] VITALS: BP 123/67
[2017-05-12 06:03] LABS: HEMATOCRIT 29.2 % (36.0-46.0); HEMOGLOBIN 9.3 G/DL (11.9-15.5); MCHC 31.8 G/DL (30.0-36.0); MCV 97.3 FL (83-99); PLATELET COUNT 272 K/uL (156-360); RBC DIS.WIDTH-CV 14.5 % (11.8-14.6); RBC DIS.WIDTH-SD 51.8 % (39-53); WHITE BLOOD COUNT 12.9 K/uL (4.1-10.2)
[2017-05-12 06:16] LABS: PTT 31.1 SEC (25-37)
[2017-05-12 06:34] LABS: CHLORIDE 109 MEQ/L (99-109); GFR ESTIMATE (CALCULATED) 58 mL/min/; GLUCOSE 121 mg/dL (70-99); POTASSIUM 3.3 MEQ/L (3.7-5.4); SODIUM 141 MEQ/L (136-147); UREA NITROGEN (BUN) 14 mg/dL (9-23)
[2017-05-12 06:43] VITALS: BP 132/61
[2017-05-12 11:10] VITALS: BP 152/74
[2017-05-12 15:21] VITALS: BP 129/59
[2017-05-12 19:32] VITALS: BP 118/61
[2017-05-12 23:48] VITALS: BP 111/53
[2017-05-13 06:18] LABS: HEMATOCRIT 29.8 % (36.0-46.0); HEMOGLOBIN 9.3 G/DL (11.9-15.5); MCH 30.8 PG (29.0-34.0); MCHC 31.2 G/DL (30.0-36.0); MCV 98.7 FL (83-99); PLATELET COUNT 289 K/uL (156-360); RBC DIS.WIDTH-CV 14.5 % (11.8-14.6); RBC DIS.WIDTH-SD 53.1 % (39-53); RED BLOOD COUNT 3.02 M/uL (3.80-5.20); WHITE BLOOD COUNT 10.4 K/uL (4.1-10.2)
[2017-05-13 06:36] LABS: CHLORIDE 111 MEQ/L (99-109); CREATININE 0.7 MG/DL (0.6-1.3); GFR ESTIMATE (CALCULATED) > 59 mL/min/; GLUCOSE 115 mg/dL (70-99); POTASSIUM 3.4 MEQ/L (3.7-5.4); SODIUM 141 MEQ/L (136-147); UREA NITROGEN (BUN) 10 mg/dL (9-23)
[2017-05-13 07:27] VITALS: BP 120/65
[2017-05-13 11:38] VITALS: BP 114/67
[2017-05-13 16:11] VITALS: BP 121/69
[2017-05-13 23:18] VITALS: BP 140/76
[2017-05-14 06:40] LABS: HEMATOCRIT 30.1 % (36.0-46.0); HEMOGLOBIN 9.2 G/DL (11.9-15.5); MCHC 30.6 G/DL (30.0-36.0); PLATELET COUNT 322 K/uL (156-360); RBC DIS.WIDTH-CV 14.6 % (11.8-14.6); RBC DIS.WIDTH-SD 52.6 % (39-53); RED BLOOD COUNT 3.07 M/uL (3.80-5.20); WHITE BLOOD COUNT 8.1 K/uL (4.1-10.2)
[2017-05-14 07:14] LABS: CHLORIDE 111 MEQ/L (99-109); CREATININE 0.5 MG/DL (0.6-1.3); GFR ESTIMATE (CALCULATED) > 59 mL/min/; GLUCOSE 97 mg/dL (70-99); SODIUM 142 MEQ/L (136-147); UREA NITROGEN (BUN) 8 mg/dL (9-23)
[2017-05-14 07:30] VITALS: BP 124/71
[2017-05-14 11:25] VITALS: BP 115/71
[2017-05-14 16:21] VITALS: BP 140/71
[2017-05-14] MEDS ORDERED: DIFLUCAN200 MG PO (16:25)
[2017-05-14] MEDS ORDERED: ZYVOX600 MG PO (16:25)
[2017-05-14] MEDS ORDERED: DOCUSATE SODIU100 MG PO (16:27)
== END 2017-05-14 18:54 | disposition home or self-care (01) | DRG 871 ==
LOC: EME 09:52 → EDOF 16:12 → 5EAST 16:12 → ENRESERV 16:16 → 5EAST 18:11
PROVIDERS: Emergency Medicine; Internal Medicine
DX: A41.9 Sepsis, unspecified organism (principal); N12 Tubulo-interstitial nephritis, not specified as acute or chronic; I10 Essential (primary) hypertension; E78.5 Hyperlipidemia, unspecified; F41.9 Anxiety disorder, unspecified; E03.9 Hypothyroidism, unspecified; I81 Portal vein thrombosis; J98.11 Atelectasis; N13.30 Unspecified hydronephrosis; E87.6 Hypokalemia; C18.2 Malignant neoplasm of ascending colon; C78.6 Secondary malignant neoplasm of retroperitoneum and peritoneum; Z96.0 Presence of urogenital implants; D64.9 Anemia, unspecified; G89.29 Other chronic pain; M54.5 Low back pain; Z96.651 Presence of right artificial knee joint; C18.0 Malignant neoplasm of cecum; Z93.1 Gastrostomy status; Z85.038 Personal history of other malignant neoplasm of large intestine; Z79.899 Other long term (current) drug therapy; Z87.440 Personal history of urinary (tract) infections; Z51.5 Encounter for palliative care; Z79.01 Long term (current) use of anticoagulants
CPT/HCPCS: 71045; 74177; 80048; 80053; 81003; 83605; 85025; 85027; 85610; 85652; 85730; 87040; 87070; 87077; 87086; 87106; 87186; 87210; 87480; 87491; 87510; 87591; 87660; 94760; 94799; 99281; 99285; J0696; J0780; J1450; J1956; J2020; J2270; J2405; J2765; J3370; J3480; J7030; J7040

== ENCOUNTER → 2017-06-11 | Outpatient (CLI) | payer MEDICARE, OTHER ==
[~2017-06-11] MED LIST changes: +DIFLUCAN200 MG PO; +DOCUSATE SODIU100 MG PO; +ZYVOX600 MG PO
== END | disposition home or self-care (01) ==
LOC: CDC 11:44
DX: Z01.810 Encounter for preprocedural cardiovascular examination (principal); Z96.0 Presence of urogenital implants
CPT/HCPCS: 93000

== ENCOUNTER 2017-07-20 11:39 | Inpatient (IN) | payer OTHER, MEDICARE ==
[~2017-07-20] VITALS: Ht 152.4 cm; Wt 72.7 kg
[2017-07-20 12:35] VITALS: BP 124/77
[2017-07-20 13:39] LABS: BASOPHIL (%) 0.4 % (0-1); EOSINOPHIL COUNT 0.1 K/uL (0-0.3); HEMATOCRIT 37.9 % (36.0-46.0); HEMOGLOBIN 12.8 G/DL (11.9-15.5); IMMATURE GRANULOCYTE (%) 0.6 % (0.0-0.7); LYMPHOCYTE (%) 10.7 % (15-42); LYMPHOCYTE COUNT 1.1 K/uL (1.0-2.8); MCH 29.1 PG (29.0-34.0); MCHC 33.8 G/DL (30.0-36.0); MCV 86.1 FL (83-99); MONOCYTE (%) 11.9 % (3-12); MONOCYTE COUNT 1.2 K/uL (0-0.8); NEUTROPHIL (%) 75.4 % (45-76); NEUTROPHIL COUNT 7.9 K/uL (1.8-6.4); PLATELET COUNT 367 K/uL (156-360); RBC DIS.WIDTH-SD 53.7 % (39-53); WHITE BLOOD COUNT 10.4 K/uL (4.1-10.2)
[2017-07-20 13:48] LABS: ALBUMIN 2.5 g/dL (3.2-4.8); CHLORIDE 103 mEq/L (99-109); SODIUM 141 mEq/L (136-147)
[2017-07-20 13:50] LABS: GLUCOSE 97 mg/dL (70-99)
[2017-07-20 13:51] LABS: TOTAL PROTEIN 6.1 g/dL (6.4-8.3)
[2017-07-20 13:52] LABS: TOTAL BILIRUBIN 1.1 mg/dL (0.0-1.0)
[2017-07-20 13:54] LABS: ALKALINE PHOSPHATASE 235 IU/L (3-129); CREATININE 0.9 mg/dL (0.6-1.3); GFR ESTIMATE (CALCULATED) > 59 mL/min/
[2017-07-20 13:55] LABS: UREA NITROGEN (BUN) 22 mg/dL (9-23)
[2017-07-20 13:56] LABS: AST (GOT) 49 IU/L (2-34)
[2017-07-20 13:57] LABS: ALT (GPT) 35 IU/L (3-49)
[2017-07-20 14:08] LABS: POTASSIUM 2.4 mEq/L (3.7-5.4)
[2017-07-20 15:11] VITALS: BP 118/74
[2017-07-20 19:31] VITALS: BP 128/63
[2017-07-21] VITALS (7 sets, daily range): BP systolic 100–131; BP diastolic 54–68
[2017-07-21 13:09] LABS: BASOPHIL (%) 0.2 % (0-1); EOSINOPHIL (%) 0.2 % (0-5); HEMATOCRIT 35.2 % (36.0-46.0); HEMOGLOBIN 11.4 G/DL (11.9-15.5); IMMATURE GRANULOCYTE (%) 0.8 % (0.0-0.7); LYMPHOCYTE (%) 3.1 % (15-42); LYMPHOCYTE COUNT 0.5 K/uL (1.0-2.8); MCH 28.6 PG (29.0-34.0); MCHC 32.4 G/DL (30.0-36.0); MCV 88.2 FL (83-99); MONOCYTE (%) 7.5 % (3-12); MONOCYTE COUNT 1.3 K/uL (0-0.8); NEUTROPHIL (%) 88.2 % (45-76); NEUTROPHIL COUNT 15.2 K/uL (1.8-6.4); PLATELET COUNT 306 K/uL (156-360); RBC DIS.WIDTH-CV 17.5 % (11.8-14.6); RBC DIS.WIDTH-SD 57.1 % (39-53); RED BLOOD COUNT 3.99 M/uL (3.80-5.20); WHITE BLOOD COUNT 17.2 K/uL (4.1-10.2)
[2017-07-21 13:33] LABS: ALT (GPT) 45 IU/L (3-49); CHLORIDE 109 MEQ/L (99-109); CREATININE 0.9 MG/DL (0.6-1.3); DIRECT BILIRUBIN 2.3 mg/dL (0.0-0.3); GFR ESTIMATE (CALCULATED) > 59 mL/min/; GLUCOSE 100 mg/dL (70-99); MAGNESIUM 1.7 mg/dl (1.3-2.7); PHOSPHORUS 4.2 mg/dL (2.5-4.9); PREALBUMIN 8.1 mg/dL (10-40); SODIUM 143 MEQ/L (136-147); TRIGLYCERIDES 326 MG/DL (Normal: <150); UREA NITROGEN (BUN) 25 mg/dL (9-23)
[2017-07-21 13:36] LABS: ALKALINE PHOSPHATASE 543 IU/L (3-129); AST (GOT) 99 IU/L (2-34); POTASSIUM 2.9 MEQ/L (3.7-5.4); TOTAL BILIRUBIN 3.3 MG/DL (0.0-1.0); TOTAL PROTEIN 4.9 G/DL (6.4-8.3)
[2017-07-22] VITALS (7 sets, daily range): BP systolic 74–127; BP diastolic 52–66
[2017-07-22 07:21] LABS: BASOPHIL (%) 0.2 % (0-1); EOSINOPHIL (%) 0.2 % (0-5); HEMATOCRIT 35.9 % (36.0-46.0); HEMOGLOBIN 11.2 G/DL (11.9-15.5); IMMATURE GRANULOCYTE (%) 1.1 % (0.0-0.7); LYMPHOCYTE (%) 2.2 % (15-42); LYMPHOCYTE COUNT 0.6 K/uL (1.0-2.8); MCH 28.7 PG (29.0-34.0); MCHC 31.2 G/DL (30.0-36.0); MCV 92.1 FL (83-99); MONOCYTE (%) 6.4 % (3-12); MONOCYTE COUNT 1.6 K/uL (0-0.8); NEUTROPHIL (%) 89.9 % (45-76); NEUTROPHIL COUNT 23.1 K/uL (1.8-6.4); PLATELET COUNT 353 K/uL (156-360); RBC DIS.WIDTH-CV 18.5 % (11.8-14.6); RBC DIS.WIDTH-SD 62.5 % (39-53); WHITE BLOOD COUNT 25.6 K/uL (4.1-10.2)
[2017-07-22 07:28] LABS: ALBUMIN 1.8 G/DL (3.2-4.8); ALKALINE PHOSPHATASE 578 IU/L (3-129); ALT (GPT) 43 IU/L (3-49); CHLORIDE 113 MEQ/L (99-109); CREATININE 1.6 MG/DL (0.6-1.3); GFR ESTIMATE (CALCULATED) 34 mL/min/; GLUCOSE 140 mg/dL (70-99); MAGNESIUM 1.9 mg/dl (1.3-2.7); PHOSPHORUS 4.4 mg/dL (2.5-4.9); SODIUM 142 MEQ/L (136-147); TOTAL BILIRUBIN 3.4 MG/DL (0.0-1.0); TOTAL PROTEIN 4.6 G/DL (6.4-8.3); UREA NITROGEN (BUN) 34 mg/dL (9-23)
[2017-07-22 07:29] LABS: AST (GOT) ND IU/L (2-34); POTASSIUM ND MEQ/L (3.7-5.4)
[2017-07-22 08:27] LABS: NO-CHARGE AST (GOT) 78 IU/L (15-37)
[2017-07-22 08:28] LABS: POTASSIUM 4.5 MEQ/L (3.7-5.4)
[2017-07-23] VITALS (7 sets, daily range): BP systolic 102–140; BP diastolic 59–70
[2017-07-23 06:00] LABS: HEMATOCRIT 31.9 % (36.0-46.0); HEMOGLOBIN 10.5 G/DL (11.9-15.5); MCHC 32.9 G/DL (30.0-36.0); PLATELET COUNT 279 K/uL (156-360); RBC DIS.WIDTH-CV 18.6 % (11.8-14.6); RBC DIS.WIDTH-SD 59.9 % (39-53); RED BLOOD COUNT 3.62 M/uL (3.80-5.20)
[2017-07-23 06:05] LABS: MCV 88.1 FL (83-99)
[2017-07-23 06:21] LABS: ALBUMIN 1.9 G/DL (3.2-4.8); ALKALINE PHOSPHATASE 548 IU/L (3-129); ALT (GPT) 34 IU/L (3-49); CHLORIDE 115 MEQ/L (99-109); GLUCOSE 126 mg/dL (70-99); SODIUM 146 MEQ/L (136-147); UREA NITROGEN (BUN) 39 mg/dL (9-23)
[2017-07-23 06:22] LABS: AST (GOT) 48 IU/L (2-34); CHLORIDE 114 MEQ/L (99-109); GFR ESTIMATE (CALCULATED) 58 mL/min/; GLUCOSE 127 mg/dL (70-99); MAGNESIUM 1.8 mg/dl (1.3-2.7); PHOSPHORUS 1.8 mg/dL (2.5-4.9); POTASSIUM 3.4 MEQ/L (3.7-5.4); POTASSIUM 3.5 MEQ/L (3.7-5.4); SODIUM 145 MEQ/L (136-147); TOTAL BILIRUBIN 1.3 MG/DL (0.0-1.0); UREA NITROGEN (BUN) 39 mg/dL (9-23)
[2017-07-23 10:23] LABS: 24 HR VOLUME 700 MLS; URINE UREA NITROGEN 5012 MG/24 HR
[2017-07-24 07:15] LABS: CHLORIDE 115 MEQ/L (99-109); CREATININE 0.6 MG/DL (0.6-1.3); GFR ESTIMATE (CALCULATED) > 59 mL/min/; GLUCOSE 119 mg/dL (70-99); MAGNESIUM 1.7 mg/dl (1.3-2.7); POTASSIUM 3.7 MEQ/L (3.7-5.4); SODIUM 147 MEQ/L (136-147); UREA NITROGEN (BUN) 25 mg/dL (9-23)
[2017-07-24 07:18] LABS: PHOSPHORUS 2.7 mg/dL (2.5-4.9)
[2017-07-24 07:20] VITALS: BP 110/67
[2017-07-24 23:05] VITALS: BP 117/64
[2017-07-25 05:58] LABS: BASOPHIL (%) 0.3 % (0-1); EOSINOPHIL COUNT 0.4 K/uL (0-0.3); HEMATOCRIT 25.8 % (36.0-46.0); IMMATURE GRANULOCYTE (%) 1.2 % (0.0-0.7); LYMPHOCYTE (%) 6.8 % (15-42); LYMPHOCYTE COUNT 0.7 K/uL (1.0-2.8); MCHC 32.6 G/DL (30.0-36.0); MONOCYTE (%) 9.3 % (3-12); MONOCYTE COUNT 0.9 K/uL (0-0.8); NEUTROPHIL (%) 78.4 % (45-76); NEUTROPHIL COUNT 7.9 K/uL (1.8-6.4); RBC DIS.WIDTH-SD 61.9 % (39-53); WHITE BLOOD COUNT 10.1 K/uL (4.1-10.2)
[2017-07-25 06:11] LABS: HEMOGLOBIN 8.4 G/DL (11.9-15.5); PLATELET COUNT 158 K/uL (156-360)
[2017-07-25 06:22] LABS: CHLORIDE 111 MEQ/L (99-109); CREATININE 0.5 MG/DL (0.6-1.3); GFR ESTIMATE (CALCULATED) > 59 mL/min/; GLUCOSE 141 mg/dL (70-99); MAGNESIUM 1.8 mg/dl (1.3-2.7); PHOSPHORUS 2.4 mg/dL (2.5-4.9); POTASSIUM 3.2 MEQ/L (3.7-5.4); SODIUM 145 MEQ/L (136-147); UREA NITROGEN (BUN) 18 mg/dL (9-23)
[2017-07-25 06:26] LABS: ALBUMIN 1.7 G/DL (3.2-4.8); ALT (GPT) 19 IU/L (3-49); CHLORIDE 111 MEQ/L (99-109); CREATININE 0.5 MG/DL (0.6-1.3); GFR ESTIMATE (CALCULATED) > 59 mL/min/; GLUCOSE 141 mg/dL (70-99); POTASSIUM 3.2 MEQ/L (3.7-5.4); SODIUM 145 MEQ/L (136-147); TOTAL PROTEIN 4.3 G/DL (6.4-8.3); UREA NITROGEN (BUN) 18 mg/dL (9-23)
[2017-07-25 06:27] LABS: ALKALINE PHOSPHATASE 380 IU/L (3-129); AST (GOT) 21 IU/L (2-34); TOTAL BILIRUBIN 0.8 MG/DL (0.0-1.0)
[2017-07-25 06:59] LABS: PLAT.SUFFICIENCY ADEQUATE
[2017-07-25 07:15] VITALS: BP 127/60
[2017-07-25 15:00] VITALS: BP 139/65
[2017-07-25 23:12] VITALS: BP 115/56
[2017-07-26 06:24] LABS: BASOPHIL (%) 0.3 % (0-1); EOSINOPHIL (%) 3.3 % (0-5); EOSINOPHIL COUNT 0.4 K/uL (0-0.3); HEMOGLOBIN 8.4 G/DL (11.9-15.5); IMMATURE GRANULOCYTE (%) 3.8 % (0.0-0.7); LYMPHOCYTE (%) 7.4 % (15-42); LYMPHOCYTE COUNT 0.8 K/uL (1.0-2.8); MCH 28.9 PG (29.0-34.0); MCHC 32.3 G/DL (30.0-36.0); MCV 89.3 FL (83-99); MONOCYTE (%) 11.8 % (3-12); MONOCYTE COUNT 1.2 K/uL (0-0.8); NEUTROPHIL (%) 73.4 % (45-76); NEUTROPHIL COUNT 7.8 K/uL (1.8-6.4); PLATELET COUNT 162 K/uL (156-360); RBC DIS.WIDTH-CV 18.7 % (11.8-14.6); RBC DIS.WIDTH-SD 61.2 % (39-53); RED BLOOD COUNT 2.91 M/uL (3.80-5.20); WHITE BLOOD COUNT 10.6 K/uL (4.1-10.2)
[2017-07-26 07:05] LABS: ALBUMIN 1.7 G/DL (3.2-4.8); ALKALINE PHOSPHATASE 354 IU/L (3-129); ALT (GPT) 16 IU/L (3-49); AST (GOT) 17 IU/L (2-34); CHLORIDE 107 MEQ/L (99-109); CREATININE 0.5 MG/DL (0.6-1.3); DIRECT BILIRUBIN 0.2 mg/dL (0.0-0.3); GFR ESTIMATE (CALCULATED) > 59 mL/min/; GLUCOSE 139 mg/dL (70-99); MAGNESIUM 1.9 mg/dl (1.3-2.7); PHOSPHORUS 2.9 mg/dL (2.5-4.9); POTASSIUM 3.4 MEQ/L (3.7-5.4); PREALBUMIN 4.6 mg/dL (10-40); SODIUM 141 MEQ/L (136-147); TOTAL BILIRUBIN 0.6 MG/DL (0.0-1.0); TOTAL PROTEIN 4.3 G/DL (6.4-8.3); TRIGLYCERIDES 188 MG/DL (Normal: <150); UREA NITROGEN (BUN) 14 mg/dL (9-23)
[2017-07-26 07:59] VITALS: BP 109/58
[2017-07-26 16:09] VITALS: BP 127/60
[2017-07-26 16:10] LABS: C-REACTIVE PROTEIN 120.3 MG/L (0-10)
[2017-07-26 23:06] VITALS: BP 100/55
[2017-07-27 07:00] VITALS: BP 113/61
[2017-07-27 08:41] LABS: CHLORIDE 105 MEQ/L (99-109); CREATININE 0.5 MG/DL (0.6-1.3); GFR ESTIMATE (CALCULATED) > 59 mL/min/; GLUCOSE 130 mg/dL (70-99); PHOSPHORUS 3.2 mg/dL (2.5-4.9); POTASSIUM 3.9 MEQ/L (3.7-5.4); SODIUM 138 MEQ/L (136-147); UREA NITROGEN (BUN) 15 mg/dL (9-23)
[2017-07-27 15:25] VITALS: BP 131/67
[2017-07-28 00:39] VITALS: BP 96/61; BP 96/91
[2017-07-28 06:08] LABS: CHLORIDE 107 MEQ/L (99-109); CREATININE 0.6 MG/DL (0.6-1.3); GFR ESTIMATE (CALCULATED) > 59 mL/min/; GLUCOSE 75 mg/dL (70-99); MAGNESIUM 1.8 mg/dl (1.3-2.7); PHOSPHORUS 4.2 mg/dL (2.5-4.9); POTASSIUM 3.8 MEQ/L (3.7-5.4); SODIUM 138 MEQ/L (136-147); UREA NITROGEN (BUN) 14 mg/dL (9-23)
[2017-07-28 06:55] VITALS: BP 104/59
[2017-07-28 15:06] VITALS: BP 109/63
[2017-07-29 00:42] VITALS: BP 116/61
[2017-07-29 06:34] LABS: CHLORIDE 107 MEQ/L (99-109); CREATININE 0.6 MG/DL (0.6-1.3); GFR ESTIMATE (CALCULATED) > 59 mL/min/; MAGNESIUM 1.9 mg/dl (1.3-2.7); PHOSPHORUS 3.1 mg/dL (2.5-4.9); POTASSIUM 3.8 MEQ/L (3.7-5.4); SODIUM 139 MEQ/L (136-147); UREA NITROGEN (BUN) 12 mg/dL (9-23)
[2017-07-29 06:35] LABS: GLUCOSE 157 mg/dL (70-99)
[2017-07-29 07:15] VITALS: BP 140/62
[2017-07-29 08:46] LABS: HEMATOCRIT 27.3 % (36.0-46.0); HEMOGLOBIN 8.5 G/DL (11.9-15.5); MCH 28.7 PG (29.0-34.0); MCHC 31.1 G/DL (30.0-36.0); MCV 92.2 FL (83-99); RBC DIS.WIDTH-CV 18.6 % (11.8-14.6); RBC DIS.WIDTH-SD 62.4 % (39-53); RED BLOOD COUNT 2.96 M/uL (3.80-5.20); WHITE BLOOD COUNT 11.9 K/uL (4.1-10.2)
[2017-07-29 09:13] LABS: PLATELET COUNT 272 K/uL (156-360)
[2017-07-29 09:28] LABS: ABS NEUTROPHIL COUNT 10.1; ANISOCYTOSIS 1+; BAND NEUTROPHILS 1.7 % (0-8.0); BASOPHILS 0.9 %; EOSINOPHIL ABS CT 0.3; EOSINOPHILS 2.6 % (0-5.0); LYMPHOCYTES 0.9 % (15.0-45.0); MACROCYTES 1+; METAMYELOCYTES 1.7 %; MYELOCYTES 1.7 %; PLAT.SUFFICIENCY ADEQUATE; SEG.NEUTROPHILS 83.5 % (46.0-76.0)
[2017-07-29 16:18] VITALS: BP 105/61
== END 2017-07-29 18:48 | disposition home health service (06) | DRG 393 ==
LOC: ENRESERV 11:39 → 5EAST 11:39 → ENRESERV 11:52 → 5EAST 12:18
PROVIDERS: Hospitalist; Internal Medicine Gastroenterology; Internal Medicine Hematology & Oncology; Physician Assistant
PROC: 0T25X0Z Change Drainage Device in Kidney, External Approach (ICD-10-PCS; principal; 2017-07-20)
PROC: 3E0436Z Introduction of Nutritional Substance into Central Vein, Percutaneous Approach (ICD-10-PCS; 2017-07-21)
DX: K94.22 Gastrostomy infection (principal); Y83.3 Surgical operation with formation of external stoma as the cause of abnormal reaction of the patient, or of later complication, without mention of misadventure at the time of the procedure; C18.0 Malignant neoplasm of cecum; C78.6 Secondary malignant neoplasm of retroperitoneum and peritoneum; E44.0 Moderate protein-calorie malnutrition; E86.0 Dehydration; E87.6 Hypokalemia; I81 Portal vein thrombosis; N13.1 Hydronephrosis with ureteral stricture, not elsewhere classified; R18.8 Other ascites; E03.9 Hypothyroidism, unspecified; R11.2 Nausea with vomiting, unspecified; D64.9 Anemia, unspecified; R41.82 Altered mental status, unspecified; T40.2X5A Adverse effect of other opioids, initial encounter; I10 Essential (primary) hypertension; E78.5 Hyperlipidemia, unspecified; K59.00 Constipation, unspecified; K21.9 Gastro-esophageal reflux disease without esophagitis; G47.33 Obstructive sleep apnea (adult) (pediatric); F32.9 Major depressive disorder, single episode, unspecified; F41.9 Anxiety disorder, unspecified; Z79.01 Long term (current) use of anticoagulants; Z92.21 Personal history of antineoplastic chemotherapy; Z96.651 Presence of right artificial knee joint; Z80.42 Family history of malignant neoplasm of prostate; Z80.8 Family history of malignant neoplasm of other organs or systems
CPT/HCPCS: 50435; 70553; 74177; 75984; 76937; 80048; 80053; 80076; 81050; 82140; 82248; 82948; 83735; 84100; 84134; 84478; 84540; 84630 90; 84999; 85025; 85027; 86140; 87077; 87086; 87106; 94010; 94760; 94799; 99202; C1729; C1769; J1170; J1644; J2060; J2270; J2405; J3480; J7030; J7040; J7050

== ENCOUNTER 2017-09-19 13:59 | Inpatient (IN) | payer OTHER, MEDICARE ==
[~2017-09-19] VITALS: Ht 152.4 cm; Wt 70.3 kg
[~2017-09-19 13:59] MED LIST changes: -ACID CONTROL150 MG PO; +ADVIL,NUPRIN,M200 MG PO; -IBUPROFEN200 M1 PO; +ZANTAC300 MG PO
[2017-09-19 15:05] LABS: HEMATOCRIT 30.3 % (36.0-46.0); MCH 29.2 PG (29.0-34.0); RBC DIS.WIDTH-SD 52.7 % (39-53); RED BLOOD COUNT 3.42 M/uL (3.80-5.20); WHITE BLOOD COUNT 4.5 K/uL (4.1-10.2)
[2017-09-19 15:09] LABS: MCV 88.6 FL (83-99); PLATELET COUNT 423 K/uL (156-360)
[2017-09-19 15:14] LABS: CHLORIDE 102 mEq/L (99-109); POTASSIUM 3.6 mEq/L (3.7-5.4); SODIUM 136 mEq/L (136-147)
[2017-09-19 15:17] LABS: GLUCOSE 136 mg/dL (70-99); TOTAL PROTEIN 6.7 g/dL (6.4-8.3)
[2017-09-19 15:19] LABS: TOTAL BILIRUBIN 0.5 mg/dL (0.0-1.0)
[2017-09-19 15:20] LABS: ALKALINE PHOSPHATASE 147 IU/L (3-129); CREATININE 0.9 mg/dL (0.6-1.3); GFR ESTIMATE (CALCULATED) > 59 mL/min/
[2017-09-19 15:21] LABS: UREA NITROGEN (BUN) 26 mg/dL (9-23)
[2017-09-19 15:22] LABS: AST (GOT) 23 IU/L (2-34)
[2017-09-19 15:23] LABS: ALT (GPT) 12 IU/L (3-49)
[2017-09-19 16:30] LABS: INTER. NORMALIZED RATIO 1.3
[2017-09-19 16:33] LABS: PTT 26.1 SEC (25-37)
[2017-09-19 16:42] LABS: LIPASE 28 U/L (1.0-51.0)
[2017-09-19] MEDS ORDERED: ZELBORAF240 MG PO (18:26)
[2017-09-19] MEDS ORDERED: COMPAZINE10 MG PO (18:27)
[2017-09-19] MEDS ORDERED: DOXYCYCLINE MO100 M1 PO (18:27)
[2017-09-19] MEDS ORDERED: ZOLOFT100 MG PO (18:27)
[2017-09-19] MEDS ORDERED: PROMETHAZINE HC25 M1 PO (18:28)
[2017-09-19] MEDS ORDERED: DURAGESIC25 MCG TD (18:28)
[2017-09-19] MEDS ORDERED: PHENERGAN25 MG PO (18:28)
[2017-09-19 19:11] LABS: APPEARANCE CLOUDY ((CLEAR)); BILIRUBIN NEGATIVE; BLOOD MODERATE; COLOR YELLOW ((YELLOW)); GLUCOSE (STRIP) NEGATIVE; KETONES NEGATIVE; LEUKOCYTES LARGE; NITRITE NEGATIVE; PROTEIN (STRIP) 30; SPECIFIC GRAVITY 1.012 (1.000-1.030); UROBILINOGEN 0.2 MG/DL (0.2-1.0)
[2017-09-19 19:47] LABS: EPITHELIAL CELLS 1+ /HPF; WHITE BLOOD CELLS 20-30 /HPF (0-5)
[2017-09-19 19:48] LABS: AMORPHOUS URATES CRYSTALS 2+; BACTERIA 2+ /HPF; MUCUS RARE /LPF; UCUL ADDED? YES
[2017-09-19 22:12] VITALS: BP 95/53
[2017-09-20 04:55] VITALS: BP 107/55
[2017-09-20 06:03] LABS: HEMATOCRIT 24.5 % (36.0-46.0); MCH 28.9 PG (29.0-34.0); PLATELET COUNT 328 K/uL (156-360); RBC DIS.WIDTH-CV 16.4 % (11.8-14.6); RBC DIS.WIDTH-SD 55.4 % (39-53)
[2017-09-20 06:05] LABS: CHLORIDE 109 MEQ/L (99-109); CREATININE 0.7 MG/DL (0.6-1.3); GFR ESTIMATE (CALCULATED) > 59 mL/min/; POTASSIUM 3.3 MEQ/L (3.7-5.4); SODIUM 139 MEQ/L (136-147); UREA NITROGEN (BUN) 18 mg/dL (9-23)
[2017-09-20 06:06] LABS: GLUCOSE 94 mg/dL (70-99)
[2017-09-20 06:20] LABS: HEMOGLOBIN 7.6 G/DL (11.9-15.5); MCV 93.2 FL (83-99); RED BLOOD COUNT 2.63 M/uL (3.80-5.20)
[2017-09-20 08:00] VITALS: BP 110/69
[2017-09-20 12:00] VITALS: BP 113/71
[2017-09-20 17:00] VITALS: BP 114/66
[2017-09-20 20:56] VITALS: BP 104/60
[2017-09-20 23:27] VITALS: BP 113/60
[2017-09-21 04:19] VITALS: BP 107/62
[2017-09-21 06:01] LABS: HEMATOCRIT 27.1 % (36.0-46.0); HEMOGLOBIN 8.3 G/DL (11.9-15.5); MCH 28.1 PG (29.0-34.0); MCHC 30.6 G/DL (30.0-36.0); MCV 91.9 FL (83-99); PLATELET COUNT 362 K/uL (156-360); RBC DIS.WIDTH-CV 16.3 % (11.8-14.6); RBC DIS.WIDTH-SD 55.7 % (39-53); RED BLOOD COUNT 2.95 M/uL (3.80-5.20); WHITE BLOOD COUNT 4.5 K/uL (4.1-10.2)
[2017-09-21 06:22] LABS: ALBUMIN 2.3 G/DL (3.2-4.8); ALKALINE PHOSPHATASE 97 IU/L (3-129); ALT (GPT) 9 IU/L (3-49); AST (GOT) 18 IU/L (2-34); CHLORIDE 106 MEQ/L (99-109); CREATININE 0.8 MG/DL (0.6-1.3); GFR ESTIMATE (CALCULATED) > 59 mL/min/; GLUCOSE 86 mg/dL (70-99); POTASSIUM 3.2 MEQ/L (3.7-5.4); SODIUM 138 MEQ/L (136-147); TOTAL BILIRUBIN 0.3 MG/DL (0.0-1.0); TOTAL PROTEIN 5.1 G/DL (6.4-8.3); UREA NITROGEN (BUN) 16 mg/dL (9-23)
[2017-09-21 06:52] LABS: ALBUMIN 2.3 G/DL (3.2-4.8); ALKALINE PHOSPHATASE 96 IU/L (3-129); ALT (GPT) 9 IU/L (3-49); AST (GOT) 15 IU/L (2-34); CHLORIDE 107 MEQ/L (99-109); CREATININE 0.8 MG/DL (0.6-1.3); DIRECT BILIRUBIN 0.1 mg/dL (0.0-0.3); GFR ESTIMATE (CALCULATED) > 59 mL/min/; GLUCOSE 86 mg/dL (70-99); MAGNESIUM 1.6 mg/dl (1.3-2.7); PHOSPHORUS 5.1 mg/dL (2.5-4.9); POTASSIUM 3.2 MEQ/L (3.7-5.4); SODIUM 138 MEQ/L (136-147); TOTAL BILIRUBIN 0.3 MG/DL (0.0-1.0); TOTAL PROTEIN 5.1 G/DL (6.4-8.3); TRIGLYCERIDES 192 MG/DL (Normal: <150); UREA NITROGEN (BUN) 16 mg/dL (9-23)
[2017-09-21 08:02] VITALS: BP 118/70
[2017-09-21 11:06] VITALS: BP 99/41
[2017-09-21 15:38] VITALS: BP 121/45
[2017-09-21 20:00] VITALS: BP 95/56
[2017-09-21 23:29] VITALS: BP 97/54
[2017-09-22 03:42] VITALS: BP 112/64
[2017-09-22 06:19] LABS: CHLORIDE 103 MEQ/L (99-109); CREATININE 0.9 MG/DL (0.6-1.3); GFR ESTIMATE (CALCULATED) > 59 mL/min/; MAGNESIUM 1.7 mg/dl (1.3-2.7); SODIUM 132 MEQ/L (136-147); UREA NITROGEN (BUN) 20 mg/dL (9-23)
[2017-09-22 06:20] LABS: GLUCOSE 270 mg/dL (70-99); PHOSPHORUS 2.2 mg/dL (2.5-4.9); POTASSIUM 4.1 MEQ/L (3.7-5.4)
[2017-09-22 07:36] VITALS: BP 108/56
[2017-09-22 10:14] LABS: ALBUMIN 2.2 G/DL (3.2-4.8); CHLORIDE 104 MEQ/L (99-109); CREATININE 0.8 MG/DL (0.6-1.3); GFR ESTIMATE (CALCULATED) > 59 mL/min/; GLUCOSE 243 mg/dL (70-99); PHOSPHORUS 2.1 mg/dL (2.5-4.9); SODIUM 133 MEQ/L (136-147); UREA NITROGEN (BUN) 25 mg/dL (9-23)
[2017-09-22 10:43] VITALS: BP 104/61
[2017-09-22 15:43] VITALS: BP 112/55
[2017-09-22 19:41] VITALS: BP 112/64
[2017-09-23 00:08] VITALS: BP 125/61
[2017-09-23 04:16] VITALS: BP 106/59
[2017-09-23 06:58] LABS: CHLORIDE 107 MEQ/L (99-109); CREATININE 0.8 MG/DL (0.6-1.3); GFR ESTIMATE (CALCULATED) > 59 mL/min/; GLUCOSE 266 mg/dL (70-99); POTASSIUM 3.8 MEQ/L (3.7-5.4); SODIUM 136 MEQ/L (136-147); UREA NITROGEN (BUN) 28 mg/dL (9-23)
[2017-09-23 06:59] LABS: MAGNESIUM 2.3 mg/dl (1.3-2.7); PHOSPHORUS 2.9 mg/dL (2.5-4.9)
[2017-09-23 09:00] VITALS: BP 104/63
[2017-09-23 12:00] VITALS: BP 117/62
[2017-09-23 18:00] VITALS: BP 117/61
[2017-09-23 20:31] VITALS: BP 119/60
[2017-09-24] VITALS (8 sets, daily range): BP systolic 112–139; BP diastolic 58–72
[2017-09-24 06:16] LABS: CHLORIDE 107 MEQ/L (99-109); CREATININE 0.7 MG/DL (0.6-1.3); GFR ESTIMATE (CALCULATED) > 59 mL/min/; GLUCOSE 217 mg/dL (70-99); MAGNESIUM 2.2 mg/dl (1.3-2.7); PHOSPHORUS 2.2 mg/dL (2.5-4.9); POTASSIUM 3.9 MEQ/L (3.7-5.4); SODIUM 139 MEQ/L (136-147); UREA NITROGEN (BUN) 24 mg/dL (9-23)
[2017-09-25 03:34] VITALS: BP 140/59
[2017-09-25 06:10] LABS: BASOPHIL (%) 0.6 % (0-1); BASOPHIL COUNT 0.1 K/uL (0-0.1); EOSINOPHIL (%) 1.3 % (0-5); EOSINOPHIL COUNT 0.1 K/uL (0-0.3); HEMATOCRIT 25.6 % (36.0-46.0); HEMOGLOBIN 7.8 G/DL (11.9-15.5); IMMATURE GRANULOCYTE (%) 1.9 % (0.0-0.7); LYMPHOCYTE (%) 8.1 % (15-42); LYMPHOCYTE COUNT 0.7 K/uL (1.0-2.8); MCH 28.5 PG (29.0-34.0); MCHC 30.5 G/DL (30.0-36.0); MCV 93.4 FL (83-99); MONOCYTE (%) 13.4 % (3-12); MONOCYTE COUNT 1.1 K/uL (0-0.8); NEUTROPHIL (%) 74.7 % (45-76); NEUTROPHIL COUNT 6.3 K/uL (1.8-6.4); PLATELET COUNT 441 K/uL (156-360); RBC DIS.WIDTH-CV 16.9 % (11.8-14.6); RBC DIS.WIDTH-SD 56.3 % (39-53); RED BLOOD COUNT 2.74 M/uL (3.80-5.20); WHITE BLOOD COUNT 8.5 K/uL (4.1-10.2)
[2017-09-25 06:51] LABS: CHLORIDE 108 MEQ/L (99-109); CREATININE 0.6 MG/DL (0.6-1.3); GFR ESTIMATE (CALCULATED) > 59 mL/min/; GLUCOSE 221 mg/dL (70-99); POTASSIUM 4.4 MEQ/L (3.7-5.4); SODIUM 141 MEQ/L (136-147); UREA NITROGEN (BUN) 24 mg/dL (9-23)
[2017-09-25 06:53] LABS: PHOSPHORUS 3.2 mg/dL (2.5-4.9)
[2017-09-25 08:00] VITALS: BP 137/75
[2017-09-25 10:40] LABS: CARBOXY HGB 1.2 % (0-5); COMMENTS - BLOOD GASES A+C+; DEVICE VENTURI; FI02 50 %; METHEMOGLOBIN 0.9 % (0-1.5); O2 FLOW 12 L/MIN; PCO2 54 mm Hg (35-45); PO2 90 mm Hg (80-100); SITE RR; pH 7.32 (7.35-7.45)
[2017-09-25 10:41] LABS: BASE EXCESS 1.2 mEq/L (-3 to +3); BICARBONATE 27.8 mEq/L (22-26)
[2017-09-25 11:36] VITALS: BP 143/67
[2017-09-25 16:24] VITALS: BP 138/70
[2017-09-25 20:29] LABS: COMMENTS - BLOOD GASES C+; DEVICE VM; FI02 40 %; O2 FLOW 8 L/MIN; SITE RR
[2017-09-25 20:30] LABS: CARBOXY HGB 1.7 % (0-5); O2 SATURATION (CALCULATED) 96.7 % (95-99); PCO2 44 mm Hg (35-45); PO2 65 mm Hg (80-100); pH 7.45 (7.35-7.45)
[2017-09-25 20:31] LABS: BASE EXCESS 6 mEq/L (-3 to +3); BICARBONATE 30.6 mEq/L (22-26); METHEMOGLOBIN 0.8 % (0-1.5)
[2017-09-25 21:00] VITALS: BP 120/62
[2017-09-26] VITALS (11 sets, daily range): BP systolic 11–152; BP diastolic 58–77
[2017-09-26 05:06] LABS: BASOPHIL (%) 0.5 % (0-1); EOSINOPHIL (%) 1.2 % (0-5); EOSINOPHIL COUNT 0.1 K/uL (0-0.3); HEMATOCRIT 22.3 % (36.0-46.0); IMMATURE GRANULOCYTE (%) 2.8 % (0.0-0.7); LYMPHOCYTE (%) 9.1 % (15-42); LYMPHOCYTE COUNT 0.7 K/uL (1.0-2.8); MCH 28.5 PG (29.0-34.0); MCHC 31.4 G/DL (30.0-36.0); MCV 90.7 FL (83-99); MONOCYTE (%) 14.9 % (3-12); MONOCYTE COUNT 1.2 K/uL (0-0.8); NEUTROPHIL (%) 71.5 % (45-76); NEUTROPHIL COUNT 5.6 K/uL (1.8-6.4); PLATELET COUNT 412 K/uL (156-360); RBC DIS.WIDTH-CV 16.6 % (11.8-14.6); RBC DIS.WIDTH-SD 54.9 % (39-53); RED BLOOD COUNT 2.46 M/uL (3.80-5.20); WHITE BLOOD COUNT 7.8 K/uL (4.1-10.2)
[2017-09-26 05:46] LABS: CHLORIDE 101 MEQ/L (99-109); CREATININE 0.6 MG/DL (0.6-1.3); GFR ESTIMATE (CALCULATED) > 59 mL/min/; GLUCOSE 193 mg/dL (70-99); MAGNESIUM 1.7 mg/dl (1.3-2.7); SODIUM 140 MEQ/L (136-147); UREA NITROGEN (BUN) 20 mg/dL (9-23)
[2017-09-26 05:50] LABS: PHOSPHORUS 1.8 mg/dL (2.5-4.9); POTASSIUM 3.1 MEQ/L (3.7-5.4)
[2017-09-26 10:23] LABS: HEMATOCRIT 23.2 % (36.0-46.0); HEMOGLOBIN 7.7 G/DL (11.9-15.5); MCV 88.2 FL (83-99)
[2017-09-27 04:17] VITALS: BP 125/61
[2017-09-27 05:48] LABS: BASOPHIL (%) 0.8 % (0-1); BASOPHIL COUNT 0.1 K/uL (0-0.1); EOSINOPHIL (%) 1.1 % (0-5); EOSINOPHIL COUNT 0.1 K/uL (0-0.3); HEMATOCRIT 26.6 % (36.0-46.0); HEMOGLOBIN 8.3 G/DL (11.9-15.5); IMMATURE GRANULOCYTE (%) 4.1 % (0.0-0.7); LYMPHOCYTE (%) 8.4 % (15-42); LYMPHOCYTE COUNT 0.8 K/uL (1.0-2.8); MCH 27.8 PG (29.0-34.0); MCHC 31.2 G/DL (30.0-36.0); MONOCYTE (%) 18.4 % (3-12); MONOCYTE COUNT 1.6 K/uL (0-0.8); NEUTROPHIL (%) 67.2 % (45-76); PLATELET COUNT 439 K/uL (156-360); RBC DIS.WIDTH-CV 16.3 % (11.8-14.6); RBC DIS.WIDTH-SD 53.1 % (39-53); WHITE BLOOD COUNT 8.9 K/uL (4.1-10.2)
[2017-09-27 05:52] LABS: RED BLOOD COUNT 2.99 M/uL (3.80-5.20)
[2017-09-27 06:22] LABS: ALBUMIN 2.3 G/DL (3.2-4.8); ALKALINE PHOSPHATASE 82 IU/L (3-129); ALT (GPT) 5 IU/L (3-49); AST (GOT) 13 IU/L (2-34); CHLORIDE 99 MEQ/L (99-109); CREATININE 0.6 MG/DL (0.6-1.3); DIRECT BILIRUBIN 0.1 mg/dL (0.0-0.3); GFR ESTIMATE (CALCULATED) > 59 mL/min/; GLUCOSE 183 mg/dL (70-99); MAGNESIUM 1.9 mg/dl (1.3-2.7); PREALBUMIN 12.1 mg/dL (10-40); SODIUM 140 MEQ/L (136-147); TOTAL PROTEIN 4.9 G/DL (6.4-8.3); TRIGLYCERIDES 172 MG/DL (Normal: <150); UREA NITROGEN (BUN) 22 mg/dL (9-23)
[2017-09-27 06:42] LABS: TOTAL BILIRUBIN 0.2 MG/DL (0.0-1.0)
[2017-09-27 07:08] VITALS: BP 142/73
[2017-09-27 09:32] LABS: TYPE OF FLUID PLEURAL
[2017-09-27 09:46] LABS: APPEARANCE SLIGHTLY CLOUDY; BODY FLUID RBC'S 2000 /MM^3 (0-100); BODY FLUID WBC'S 594 /MM^3 (0-500)
[2017-09-27 10:15] LABS: BODY FLUID GLUCOSE 192 MG/DL; BODY FLUID LDH 69 IU/L; BODY FLUID PROTEIN 3.1 G/DL
[2017-09-27 11:08] LABS: BODY FLUID EOSINOPHILS 8 % (0-25); MONONUCLEAR WBC'S 55 %; POLYNUCLEAR WBC'S 37 % (0-25)
[2017-09-27 11:52] VITALS: BP 104/59
[2017-09-27 15:00] VITALS: BP 108/62
[2017-09-27 18:11] LABS: COMMENTS - BLOOD GASES A+C+; O2 FLOW 15 L/MIN; PCO2 46 mm Hg (35-45); PO2 50 mm Hg (80-100); SITE RR; pH 7.48 (7.35-7.45)
[2017-09-27 18:12] LABS: BASE EXCESS 9.7 mEq/L (-3 to +3); BICARBONATE 34.3 mEq/L (22-26); CARBOXY HGB 1.6 % (0-5); METHEMOGLOBIN 1.1 % (0-1.5); O2 SATURATION (CALCULATED) 87.7 % (95-99)
[2017-09-27 19:45] VITALS: BP 109/65
[2017-09-27 22:40] VITALS: BP 105/57
[2017-09-28 01:55] LABS: TROP-I INTERPRETATION NEGATIVE; TROPONIN-I < 0.01 ng/mL (0.0-0.30)
[2017-09-28 03:47] VITALS: BP 114/62
[2017-09-28 03:57] LABS: LIPASE 9 U/L (1.0-51.0)
[2017-09-28 06:43] LABS: HEMATOCRIT 27.5 % (36.0-46.0); HEMOGLOBIN 8.6 G/DL (11.9-15.5); MCH 28.2 PG (29.0-34.0); MCHC 31.3 G/DL (30.0-36.0); MCV 90.2 FL (83-99); PLATELET COUNT 454 K/uL (156-360); RBC DIS.WIDTH-SD 53.1 % (39-53); RED BLOOD COUNT 3.05 M/uL (3.80-5.20); WHITE BLOOD COUNT 9.5 K/uL (4.1-10.2)
[2017-09-28 07:02] LABS: TROP-I INTERPRETATION NEGATIVE; TROPONIN-I < 0.01 ng/mL (0.0-0.30)
[2017-09-28 07:15] LABS: CHLORIDE 95 MEQ/L (99-109); CREATININE 0.7 MG/DL (0.6-1.3); GFR ESTIMATE (CALCULATED) > 59 mL/min/; GLUCOSE 163 mg/dL (70-99); PHOSPHORUS 3.6 mg/dL (2.5-4.9); POTASSIUM 4.1 MEQ/L (3.7-5.4); SODIUM 136 MEQ/L (136-147); UREA NITROGEN (BUN) 29 mg/dL (9-23)
[2017-09-28 07:16] LABS: MAGNESIUM 2.2 mg/dl (1.3-2.7)
[2017-09-28 08:01] VITALS: BP 117/63
[2017-09-28 11:26] VITALS: BP 108/59
[2017-09-28 12:55] LABS: TROP-I INTERPRETATION NEGATIVE; TROPONIN-I < 0.01 ng/mL (0.0-0.30)
[2017-09-28 15:20] VITALS: BP 112/56
[2017-09-28 19:31] VITALS: BP 98/58
[2017-09-28 23:28] VITALS: BP 105/57
[2017-09-29 04:50] VITALS: BP 98/57
[2017-09-29 06:07] LABS: CHLORIDE 98 MEQ/L (99-109); CREATININE 0.7 MG/DL (0.6-1.3); GFR ESTIMATE (CALCULATED) > 59 mL/min/; GLUCOSE 178 mg/dL (70-99); MAGNESIUM 2.1 mg/dl (1.3-2.7); PHOSPHORUS 3.8 mg/dL (2.5-4.9); POTASSIUM 4.2 MEQ/L (3.7-5.4); SODIUM 137 MEQ/L (136-147); UREA NITROGEN (BUN) 31 mg/dL (9-23)
[2017-09-29 09:15] VITALS: BP 119/80
[2017-09-29 11:50] VITALS: BP 99/55
[2017-09-29 15:23] VITALS: BP 105/56
[2017-09-29 20:10] VITALS: BP 116/82
[2017-09-30] VITALS: BP 118/70
[2017-09-30 02:59] VITALS: BP 116/68
[2017-09-30 03:13] LABS: COMMENTS - BLOOD GASES C+A+; DEVICE NRBM; O2 FLOW 15 L/MIN; SITE RR
[2017-09-30 03:14] LABS: FI02 100 %; O2 SATURATION (CALCULATED) 99.5 % (95-99); PCO2 46 mm Hg (35-45); PO2 136 mm Hg (80-100); TOTAL RESP RATE 21 resp/min; pH 7.46 (7.35-7.45)
[2017-09-30 03:15] LABS: BASE EXCESS 7.9 mEq/L (-3 to +3); BICARBONATE 32.7 mEq/L (22-26); CARBOXY HGB 1.6 % (0-5); METHEMOGLOBIN 1.5 % (0-1.5)
[2017-09-30 04:15] LABS: CHLORIDE 97 mEq/L (99-109); POTASSIUM 3.6 mEq/L (3.7-5.4); SODIUM 136 mEq/L (136-147)
[2017-09-30 04:16] LABS: MAGNESIUM 1.9 mg/dL (1.3-2.7)
[2017-09-30 04:17] LABS: GLUCOSE 203 mg/dL (70-99)
[2017-09-30 04:21] LABS: CREATININE 0.7 mg/dL (0.6-1.3); GFR ESTIMATE (CALCULATED) > 59 mL/min/; PHOSPHORUS 3.3 mg/dL (2.5-4.9)
[2017-09-30 04:22] LABS: UREA NITROGEN (BUN) 32 mg/dL (9-23)
[2017-09-30 08:00] VITALS: BP 111/61
[2017-09-30 11:41] VITALS: BP 106/54
[2017-09-30 15:24] VITALS: BP 128/67
[2017-09-30 20:53] VITALS: BP 116/62
[2017-10-01] VITALS (7 sets, daily range): BP systolic 96–122; BP diastolic 53–68
[2017-10-01 06:12] LABS: CHLORIDE 96 MEQ/L (99-109); CREATININE 0.6 MG/DL (0.6-1.3); GFR ESTIMATE (CALCULATED) > 59 mL/min/; GLUCOSE 165 mg/dL (70-99); PHOSPHORUS 2.8 mg/dL (2.5-4.9); SODIUM 133 MEQ/L (136-147); UREA NITROGEN (BUN) 33 mg/dL (9-23)
[2017-10-01 06:22] LABS: POTASSIUM 5.6 MEQ/L (3.7-5.4)
[2017-10-02 04:20] VITALS: BP 119/60
[2017-10-02 06:19] LABS: CHLORIDE 95 MEQ/L (99-109); CREATININE 0.7 MG/DL (0.6-1.3); GFR ESTIMATE (CALCULATED) > 59 mL/min/; GLUCOSE 187 mg/dL (70-99); MAGNESIUM 2.1 mg/dl (1.3-2.7); POTASSIUM 4.7 MEQ/L (3.7-5.4); SODIUM 132 MEQ/L (136-147); UREA NITROGEN (BUN) 34 mg/dL (9-23)
[2017-10-02 06:29] LABS: PHOSPHORUS 4.9 mg/dL (2.5-4.9)
[2017-10-02 07:54] VITALS: BP 118/60
[2017-10-02 12:11] VITALS: BP 110/63
[2017-10-02 15:39] VITALS: BP 109/58
[2017-10-02 20:00] VITALS: BP 114/59
[2017-10-02 21:08] LABS: COMMENTS - BLOOD GASES C+; DEVICE NCHH; FI02 100 %; O2 FLOW 60 L/MIN; PCO2 40 mm Hg (35-45); PO2 43 mm Hg (80-100); SITE LR; TOTAL RESP RATE 23 resp/min
[2017-10-02 21:09] LABS: BASE EXCESS 7.4 mEq/L (-3 to +3); BICARBONATE 31.2 mEq/L (22-26); CARBOXY HGB 1.6 % (0-5); METHEMOGLOBIN 0.9 % (0-1.5); O2 SATURATION (CALCULATED) 83.7 % (95-99)
[2017-10-02 23:39] VITALS: BP 122/58
[2017-10-03 04:00] VITALS: BP 109/57
[2017-10-03 06:07] LABS: CHLORIDE 100 MEQ/L (99-109); CREATININE 0.6 MG/DL (0.6-1.3); GFR ESTIMATE (CALCULATED) > 59 mL/min/; GLUCOSE 177 mg/dL (70-99); MAGNESIUM 2.1 mg/dl (1.3-2.7); POTASSIUM 4.1 MEQ/L (3.7-5.4); SODIUM 136 MEQ/L (136-147); UREA NITROGEN (BUN) 36 mg/dL (9-23)
[2017-10-03 07:30] VITALS: BP 120/51
[2017-10-03 11:48] VITALS: BP 120/72
[2017-10-03 14:55] VITALS: BP 92/64
[2017-10-03 15:18] LABS: COMMENTS - BLOOD GASES A+C+; DEVICE NCHH; FI02 100 %; O2 FLOW 70 L/MIN; SITE RR; TOTAL RESP RATE 24 resp/min; pH 7.54 (7.35-7.45)
[2017-10-03 15:19] LABS: BASE EXCESS 6.3 mEq/L (-3 to +3); BICARBONATE 29.1 mEq/L (22-26); CARBOXY HGB 1.9 % (0-5); METHEMOGLOBIN 1.5 % (0-1.5); O2 SATURATION (CALCULATED) 89.9 % (95-99); PCO2 34 mm Hg (35-45); PO2 43 mm Hg (80-100)
[2017-10-03 19:21] VITALS: BP 120/69
[2017-10-03 21:50] LABS: C DIFF TOXIN NEGATIVE (NEGATIVE)
[2017-10-03 23:00] VITALS: BP 114/58
[2017-10-04] VITALS (12 sets, daily range): BP systolic 79–119; BP diastolic 51–87
[2017-10-04 05:31] LABS: BASOPHIL (%) 0.6 % (0-1); BASOPHIL COUNT 0.1 K/uL (0-0.1); EOSINOPHIL (%) 0.9 % (0-5); EOSINOPHIL COUNT 0.1 K/uL (0-0.3); HEMATOCRIT 23.4 % (36.0-46.0); HEMOGLOBIN 7.3 G/DL (11.9-15.5); IMMATURE GRANULOCYTE (%) 1.4 % (0.0-0.7); LYMPHOCYTE (%) 5.2 % (15-42); LYMPHOCYTE COUNT 0.6 K/uL (1.0-2.8); MCH 28.3 PG (29.0-34.0); MCHC 31.2 G/DL (30.0-36.0); MCV 90.7 FL (83-99); MONOCYTE COUNT 0.9 K/uL (0-0.8); NEUTROPHIL (%) 82.9 % (45-76); NEUTROPHIL COUNT 8.7 K/uL (1.8-6.4); PLATELET COUNT 483 K/uL (156-360); RBC DIS.WIDTH-CV 15.5 % (11.8-14.6); RBC DIS.WIDTH-SD 50.9 % (39-53); RED BLOOD COUNT 2.58 M/uL (3.80-5.20); WHITE BLOOD COUNT 10.5 K/uL (4.1-10.2)
[2017-10-04 06:09] LABS: ALBUMIN 1.9 G/DL (3.2-4.8); ALKALINE PHOSPHATASE 151 IU/L (3-129); ALT (GPT) 37 IU/L (3-49); AST (GOT) 47 IU/L (2-34); CHLORIDE 98 MEQ/L (99-109); CREATININE 0.5 MG/DL (0.6-1.3); DIRECT BILIRUBIN 0.1 mg/dL (0.0-0.3); GFR ESTIMATE (CALCULATED) > 59 mL/min/; GLUCOSE 187 mg/dL (70-99); MAGNESIUM 1.8 mg/dl (1.3-2.7); POTASSIUM 3.9 MEQ/L (3.7-5.4); PREALBUMIN 9.5 mg/dL (10-40); SODIUM 133 MEQ/L (136-147); TOTAL BILIRUBIN 0.3 MG/DL (0.0-1.0); TOTAL PROTEIN 4.6 G/DL (6.4-8.3); TRIGLYCERIDES 171 MG/DL (Normal: <150); UREA NITROGEN (BUN) 29 mg/dL (9-23)
[2017-10-04 06:13] LABS: PHOSPHORUS 2.7 mg/dL (2.5-4.9)
[2017-10-04 12:34] LABS: COMMENTS - BLOOD GASES +C; DEVICE HHFNC; FI02 100 %; O2 FLOW 70 L/MIN; SITE RR +A; TOTAL RESP RATE 24 resp/min
[2017-10-04 12:35] LABS: PCO2 36 mm Hg (35-45); PO2 49 mm Hg (80-100); pH 7.48 (7.35-7.45)
[2017-10-04 12:36] LABS: BASE EXCESS 3.1 mEq/L (-3 to +3); BICARBONATE 26.8 mEq/L (22-26); CARBOXY HGB 1.8 % (0-5); METHEMOGLOBIN 1.2 % (0-1.5); O2 SATURATION (CALCULATED) 90.3 % (95-99)
[2017-10-04 14:25] LABS: HEMATOCRIT 26.3 % (36.0-46.0); HEMOGLOBIN 8.2 G/DL (11.9-15.5); MCH 28.1 PG (29.0-34.0); MCHC 31.2 G/DL (30.0-36.0); MCV 90.1 FL (83-99); PLATELET COUNT 508 K/uL (156-360); RBC DIS.WIDTH-CV 15.2 % (11.8-14.6); RBC DIS.WIDTH-SD 49.8 % (39-53); RED BLOOD COUNT 2.92 M/uL (3.80-5.20); WHITE BLOOD COUNT 13.9 K/uL (4.1-10.2)
[2017-10-04 17:14] LABS: COMMENTS - BLOOD GASES C+; DEVICE VENTI MASK; FI02 50 %; O2 FLOW 15 L/MIN; PCO2 33 mm Hg (35-45); SITE RR; TOTAL RESP RATE 24 resp/min; pH 7.53 (7.35-7.45)
[2017-10-04 17:15] LABS: BASE EXCESS 4.7 mEq/L (-3 to +3); BICARBONATE 27.6 mEq/L (22-26); CARBOXY HGB 1.4 % (0-5); METHEMOGLOBIN 1.4 % (0-1.5); O2 SATURATION (CALCULATED) 96.9 % (95-99); PO2 59 mm Hg (80-100)
[2017-10-05] VITALS (22 sets, daily range): BP systolic 98–128; BP diastolic 54–86
[2017-10-05 05:34] LABS: BASOPHIL (%) 0.6 % (0-1); BASOPHIL COUNT 0.1 K/uL (0-0.1); EOSINOPHIL (%) 1.2 % (0-5); EOSINOPHIL COUNT 0.1 K/uL (0-0.3); HEMATOCRIT 23.1 % (36.0-46.0); HEMOGLOBIN 7.3 G/DL (11.9-15.5); IMMATURE GRANULOCYTE (%) 1.8 % (0.0-0.7); LYMPHOCYTE (%) 5.8 % (15-42); LYMPHOCYTE COUNT 0.6 K/uL (1.0-2.8); MCH 28.3 PG (29.0-34.0); MCHC 31.6 G/DL (30.0-36.0); MCV 89.5 FL (83-99); MONOCYTE (%) 9.8 % (3-12); NEUTROPHIL (%) 80.8 % (45-76); NEUTROPHIL COUNT 7.9 K/uL (1.8-6.4); PLATELET COUNT 474 K/uL (156-360); RBC DIS.WIDTH-CV 15.2 % (11.8-14.6); RBC DIS.WIDTH-SD 49.3 % (39-53); RED BLOOD COUNT 2.58 M/uL (3.80-5.20); WHITE BLOOD COUNT 9.8 K/uL (4.1-10.2)
[2017-10-05 06:11] LABS: CHLORIDE 98 MEQ/L (99-109); CREATININE 0.5 MG/DL (0.6-1.3); GFR ESTIMATE (CALCULATED) > 59 mL/min/; GLUCOSE 159 mg/dL (70-99); MAGNESIUM 1.9 mg/dl (1.3-2.7); PHOSPHORUS 3.5 mg/dL (2.5-4.9); POTASSIUM 4.2 MEQ/L (3.7-5.4); SODIUM 135 MEQ/L (136-147); UREA NITROGEN (BUN) 23 mg/dL (9-23)
[2017-10-05 10:50] LABS: COMMENTS - BLOOD GASES C+; DEVICE VM; FI02 50 %; O2 FLOW 15 L/MIN; SITE RR; TOTAL RESP RATE 20 resp/min
[2017-10-05 10:51] LABS: BASE EXCESS 3.3 mEq/L (-3 to +3); BICARBONATE 27.8 mEq/L (22-26); CARBOXY HGB 1.2 % (0-5); METHEMOGLOBIN 1.3 % (0-1.5); O2 SATURATION (CALCULATED) 98.4 % (95-99); PCO2 41 mm Hg (35-45); PO2 81 mm Hg (80-100); pH 7.44 (7.35-7.45)
[2017-10-05 11:14] LABS: 24 HR VOLUME 1625 MLS; URINE UREA NITROGEN 10628 MG/24 HR
[2017-10-06 03:45] VITALS: BP 120/66
[2017-10-06 05:11] LABS: BASOPHIL (%) 0.5 % (0-1); BASOPHIL COUNT 0.1 K/uL (0-0.1); EOSINOPHIL (%) 2.1 % (0-5); EOSINOPHIL COUNT 0.2 K/uL (0-0.3); HEMOGLOBIN 7.3 G/DL (11.9-15.5); IMMATURE GRANULOCYTE (%) 1.8 % (0.0-0.7); LYMPHOCYTE (%) 7.7 % (15-42); LYMPHOCYTE COUNT 0.8 K/uL (1.0-2.8); MCH 27.1 PG (29.0-34.0); MCHC 30.4 G/DL (30.0-36.0); MCV 89.2 FL (83-99); MONOCYTE (%) 10.6 % (3-12); MONOCYTE COUNT 1.1 K/uL (0-0.8); NEUTROPHIL (%) 77.3 % (45-76); NEUTROPHIL COUNT 7.6 K/uL (1.8-6.4); PLATELET COUNT 487 K/uL (156-360); RBC DIS.WIDTH-CV 15.1 % (11.8-14.6); RBC DIS.WIDTH-SD 49.6 % (39-53); RED BLOOD COUNT 2.69 M/uL (3.80-5.20); WHITE BLOOD COUNT 9.9 K/uL (4.1-10.2)
[2017-10-06 06:03] LABS: CHLORIDE 102 MEQ/L (99-109); CREATININE 0.5 MG/DL (0.6-1.3); GFR ESTIMATE (CALCULATED) > 59 mL/min/; GLUCOSE 139 mg/dL (70-99); POTASSIUM 4.4 MEQ/L (3.7-5.4); SODIUM 137 MEQ/L (136-147); UREA NITROGEN (BUN) 24 mg/dL (9-23)
[2017-10-06 08:07] VITALS: BP 138/75
[2017-10-06 12:12] VITALS: BP 140/66
[2017-10-06 18:50] VITALS: BP 129/67
[2017-10-06 23:00] VITALS: BP 120/67
[2017-10-07 04:15] VITALS: BP 119/65
[2017-10-07 05:34] LABS: BASOPHIL (%) 0.4 % (0-1); EOSINOPHIL COUNT 0.3 K/uL (0-0.3); HEMATOCRIT 24.8 % (36.0-46.0); HEMOGLOBIN 7.8 G/DL (11.9-15.5); IMMATURE GRANULOCYTE (%) 3.3 % (0.0-0.7); LYMPHOCYTE (%) 8.6 % (15-42); LYMPHOCYTE COUNT 0.8 K/uL (1.0-2.8); MCH 28.2 PG (29.0-34.0); MCHC 31.5 G/DL (30.0-36.0); MCV 89.5 FL (83-99); MONOCYTE (%) 9.1 % (3-12); MONOCYTE COUNT 0.9 K/uL (0-0.8); NEUTROPHIL (%) 75.6 % (45-76); NEUTROPHIL COUNT 7.3 K/uL (1.8-6.4); PLATELET COUNT 557 K/uL (156-360); RBC DIS.WIDTH-SD 49.7 % (39-53); RED BLOOD COUNT 2.77 M/uL (3.80-5.20); WHITE BLOOD COUNT 9.6 K/uL (4.1-10.2)
[2017-10-07 06:16] LABS: CHLORIDE 103 MEQ/L (99-109); CREATININE 0.4 MG/DL (0.6-1.3); GFR ESTIMATE (CALCULATED) > 59 mL/min/; GLUCOSE 121 mg/dL (70-99); PHOSPHORUS 2.7 mg/dL (2.5-4.9); POTASSIUM 4.3 MEQ/L (3.7-5.4); SODIUM 136 MEQ/L (136-147); UREA NITROGEN (BUN) 23 mg/dL (9-23)
[2017-10-07 07:16] VITALS: BP 147/78
[2017-10-07] MEDS ORDERED: ELIQUIS2.5 MG PO (11:08)
[2017-10-07] MEDS ORDERED: TPN IV (11:09)
[2017-10-07] MEDS ORDERED: BUMETANIDE0.5 MG PO (11:11)
[2017-10-07] MEDS ORDERED: NOVOLOG 10100 UNITS/ SC (11:13)
[2017-10-07] MEDS ORDERED: DOCUSATE SODIU100 MG PO (11:13)
[2017-10-07] MEDS ORDERED: ACETAMINOPHEN650 M4 PR (11:13)
[2017-10-07] MEDS ORDERED: OXYCODONE-APAP1 EACH PO (11:15)
[2017-10-07] MEDS ORDERED: OXYCODONE HCL5 MG PO (11:15)
[2017-10-07 11:31] VITALS: BP 132/68
== END 2017-10-07 13:29 | DRG 871 ==
LOC: EME 13:59 → 4EAST 20:57 → 4WEST 20:57 → ENRESERV 20:57 → EDOF 20:57 → ENRESERV 21:15 → 4EAST 21:55 → ENRESERV 09-22 → 4EAST 09-22 10:55 → ENRESERV 09-22 18:03 → CANRESERV 09-22 23:55 → ENRESERV 09-22 23:55 → 2EAST 09-24 18:12 → ENRESERV 09-25 13:18 → 4EAST 09-25 14:54 → ENRESERV 10-04 14:54 → 4WEST 10-04 15:57 → ENRESERV 10-05 16:03 → 4EAST 10-05 20:18 → ENPENDDIS 10-07 → 4EAST 10-07 13:29
PROVIDERS: Emergency Medicine; Hospitalist; Internal Medicine; Physician Assistant; Student in an Organized Health Care Education/Training Program
DX: A41.9 Sepsis, unspecified organism (principal); N99.521 Infection of incontinent external stoma of urinary tract; Y83.2 Surgical operation with anastomosis, bypass or graft as the cause of abnormal reaction of the patient, or of later complication, without mention of misadventure at the time of the procedure; J91.0 Malignant pleural effusion; C78.6 Secondary malignant neoplasm of retroperitoneum and peritoneum; E44.0 Moderate protein-calorie malnutrition; J96.01 Acute respiratory failure with hypoxia; J96.02 Acute respiratory failure with hypercapnia; R65.20 Severe sepsis without septic shock; J81.1 Chronic pulmonary edema; E87.2 Acidosis; E83.39 Other disorders of phosphorus metabolism; E83.51 Hypocalcemia; R18.8 Other ascites; Z43.1 Encounter for attention to gastrostomy; D64.81 Anemia due to antineoplastic chemotherapy; E87.6 Hypokalemia; T45.1X5A Adverse effect of antineoplastic and immunosuppressive drugs, initial encounter; C18.0 Malignant neoplasm of cecum; R31.9 Hematuria, unspecified; E03.9 Hypothyroidism, unspecified; F32.9 Major depressive disorder, single episode, unspecified; F41.9 Anxiety disorder, unspecified; G47.33 Obstructive sleep apnea (adult) (pediatric); G89.3 Neoplasm related pain (acute) (chronic); I10 Essential (primary) hypertension; R19.7 Diarrhea, unspecified; J98.11 Atelectasis; E11.9 Type 2 diabetes mellitus without complications; K21.9 Gastro-esophageal reflux disease without esophagitis; Z66 Do not resuscitate; Z96.651 Presence of right artificial knee joint; E66.9 Obesity, unspecified; Z68.30 Body mass index [BMI] 30.0-30.9, adult; Z79.01 Long term (current) use of anticoagulants; Z86.718 Personal history of other venous thrombosis and embolism; Z87.442 Personal history of urinary calculi; Z92.21 Personal history of antineoplastic chemotherapy; Z88.0 Allergy status to penicillin
CPT/HCPCS: 32557; 36600; 50435; 71045; 71250; 71275; 74018; 74176; 74177; 76942; 80048; 80048 91; 80053; 80076; 80202; 81003; 81050; 82040; 82248; 82945; 82948; 83605; 83615 91; 83690; 83735; 83880; 84100; 84132 91; 84134; 84157; 84478; 84484; 84540; 84630 90; 85014; 85018; 85025; 85027; 85379; 85610; 85730; 86850; 86900; 86901; 86920; 87040; 87070; 87075; 87086; 87205; 87493; 87641; 88108; 88305; 88341 TC; 88342 TC; 89051; 93005; 93306; 93970; 94640; 94660; 94760; 94799; 97530 GP; 99281; 99284; C1729; C1769; C9113; J0696; J1815; J1940; J1956; J2270; J2405; J3010; J3370; J3480; J7030; J7040; J7050; P9016; Q0164; Q0169; S0030

== ENCOUNTER 2017-10-16 19:12 | Inpatient (IN) | payer OTHER, MEDICARE ==
[~2017-10-16] VITALS: Ht 152.4 cm; Wt 81.3 kg
[~2017-10-16 19:12] MED LIST changes: +ACETAMINOPHEN650 M4 PR; +BUMETANIDE0.5 MG PO; +COMPAZINE10 MG PO; +DOXYCYCLINE MO100 M1 PO; +DURAGESIC25 MCG TD; +ELIQUIS2.5 MG PO; +NOVOLOG 10100 UNITS/ SC; +OXYCODONE-APAP1 EACH PO; +PHENERGAN25 MG PO; +PROMETHAZINE HC25 M1 PO; +TPN IV; +ZELBORAF240 MG PO
[2017-10-16 19:37] LABS: HEMATOCRIT 24.5 % (36.0-46.0); HEMOGLOBIN 7.6 G/DL (11.9-15.5); MCV 90.4 FL (83-99); PLATELET COUNT 477 K/uL (156-360); RBC DIS.WIDTH-CV 15.8 % (11.8-14.6); RBC DIS.WIDTH-SD 51.8 % (39-53); RED BLOOD COUNT 2.71 M/uL (3.80-5.20)
[2017-10-16 19:45] LABS: CHLORIDE 100 mEq/L (99-109); POTASSIUM 3.3 mEq/L (3.7-5.4); SODIUM 135 mEq/L (136-147)
[2017-10-16 19:46] LABS: GLUCOSE 126 mg/dL (70-99)
[2017-10-16 19:50] LABS: CREATININE 0.6 mg/dL (0.6-1.3); GFR ESTIMATE (CALCULATED) > 59 mL/min/
[2017-10-16 19:51] LABS: UREA NITROGEN (BUN) 25 mg/dL (9-23)
[2017-10-16 20:30] LABS: TROP-I INTERPRETATION NEGATIVE; TROPONIN-I < 0.01 ng/mL (0.0-0.30)
[2017-10-16] MEDS ORDERED: SYNTHROID175 MCG PO (23:01)
[2017-10-16] MEDS ORDERED: ROXICODONE15 MG PO (23:02)
[2017-10-16] MEDS ORDERED: LASIX40 MG PO (23:02)
[2017-10-16] MEDS ORDERED: DOK250 MG PO (23:03)
[2017-10-16] MEDS ORDERED: ELIQUIS2.5 MG PO (23:03)
[2017-10-16] MEDS ORDERED: BUMEX0.5 MG PO (23:04)
[2017-10-16] MEDS ORDERED: NASONEX17 GM BOTH NARES (23:05)
[2017-10-16] MEDS ORDERED: ZOFRAN ODT4 MG PO (23:07)
[2017-10-16] MEDS ORDERED: TYLENOL ARTHRI650 MG PO (23:08)
[2017-10-16] MEDS ORDERED: DUONEB 2.5-0.5 M3 ML AEROSOL (23:10)
[2017-10-16] MEDS ORDERED: HYDROPHOR228 GM TP (23:12)
[2017-10-17 02:30] VITALS: BP 116/68
[2017-10-17 02:57] LABS: APPEARANCE CLEAR ((CLEAR)); BILIRUBIN NEGATIVE; BLOOD SMALL; GLUCOSE (STRIP) NEGATIVE; KETONES NEGATIVE; LEUKOCYTES LARGE; NITRITE NEGATIVE; PROTEIN (STRIP) NEGATIVE; SPECIFIC GRAVITY 1.003 (1.000-1.030); UROBILINOGEN 0.2 MG/DL (0.2-1.0)
[2017-10-17 03:10] LABS: COLOR COLORLESS ((YELLOW))
[2017-10-17 03:13] LABS: BACTERIA RARE /HPF; EPITHELIAL CELLS RARE /HPF; MUCUS TRACE /LPF; UCUL ADDED? YES; WHITE BLOOD CELLS 40-50 /HPF (0-5)
[2017-10-17 07:19] LABS: CHLORIDE 97 MEQ/L (99-109); CREATININE 0.5 MG/DL (0.6-1.3); GFR ESTIMATE (CALCULATED) > 59 mL/min/; GLUCOSE 105 mg/dL (70-99); MAGNESIUM 1.4 mg/dl (1.3-2.7); POTASSIUM 3.2 MEQ/L (3.7-5.4); SODIUM 136 MEQ/L (136-147); UREA NITROGEN (BUN) 20 mg/dL (9-23)
[2017-10-17 07:41] LABS: PHOSPHORUS 4.4 mg/dL (2.5-4.9)
[2017-10-17 08:22] LABS: ALBUMIN 2.3 G/DL (3.2-4.8); ALKALINE PHOSPHATASE 230 IU/L (3-129); ALT (GPT) 15 IU/L (3-49); AST (GOT) 18 IU/L (2-34); DIRECT BILIRUBIN 0.1 mg/dL (0.0-0.3); PREALBUMIN 10.6 mg/dL (10-40); TOTAL BILIRUBIN 0.3 MG/DL (0.0-1.0); TOTAL PROTEIN 5.2 G/DL (6.4-8.3); TRIGLYCERIDES 202 MG/DL (Normal: <150)
[2017-10-17 08:30] VITALS: BP 106/63
[2017-10-17 12:00] VITALS: BP 134/66
[2017-10-17 17:00] VITALS: BP 129/62
[2017-10-17 19:07] VITALS: BP 124/71
[2017-10-18] VITALS (7 sets, daily range): BP systolic 121–144; BP diastolic 60–73
[2017-10-18 05:40] LABS: HEMOGLOBIN 8.3 G/DL (11.9-15.5); MCH 27.9 PG (29.0-34.0); MCHC 30.7 G/DL (30.0-36.0); MCV 90.6 FL (83-99); PLATELET COUNT 538 K/uL (156-360); RBC DIS.WIDTH-CV 15.8 % (11.8-14.6); RBC DIS.WIDTH-SD 51.1 % (39-53); RED BLOOD COUNT 2.98 M/uL (3.80-5.20); WHITE BLOOD COUNT 11.6 K/uL (4.1-10.2)
[2017-10-18 05:59] LABS: ALBUMIN 2.4 G/DL (3.2-4.8); ALKALINE PHOSPHATASE 212 IU/L (3-129); ALT (GPT) 13 IU/L (3-49); AST (GOT) 16 IU/L (2-34); CHLORIDE 101 MEQ/L (99-109); CREATININE 0.6 MG/DL (0.6-1.3); GFR ESTIMATE (CALCULATED) > 59 mL/min/; POTASSIUM 3.7 MEQ/L (3.7-5.4); SODIUM 137 MEQ/L (136-147); TOTAL BILIRUBIN 0.3 MG/DL (0.0-1.0); TOTAL PROTEIN 5.6 G/DL (6.4-8.3); UREA NITROGEN (BUN) 26 mg/dL (9-23); UREA NITROGEN (BUN) 27 mg/dL (9-23)
[2017-10-18 06:00] LABS: GLUCOSE 202 mg/dL (70-99); PHOSPHORUS 2.6 mg/dL (2.5-4.9)
[2017-10-18 06:01] LABS: GLUCOSE 200 mg/dL (70-99)
[2017-10-19 04:25] VITALS: BP 132/64
[2017-10-19 05:39] LABS: HEMATOCRIT 24.7 % (36.0-46.0); HEMOGLOBIN 7.6 G/DL (11.9-15.5); MCH 27.9 PG (29.0-34.0); MCHC 30.8 G/DL (30.0-36.0); MCV 90.8 FL (83-99); PLATELET COUNT 468 K/uL (156-360); RBC DIS.WIDTH-CV 15.9 % (11.8-14.6); RBC DIS.WIDTH-SD 52.6 % (39-53); RED BLOOD COUNT 2.72 M/uL (3.80-5.20); WHITE BLOOD COUNT 10.6 K/uL (4.1-10.2)
[2017-10-19 06:03] LABS: CHLORIDE 104 MEQ/L (99-109); CREATININE 0.5 MG/DL (0.6-1.3); GFR ESTIMATE (CALCULATED) > 59 mL/min/; GLUCOSE 209 mg/dL (70-99); MAGNESIUM 1.9 mg/dl (1.3-2.7); PHOSPHORUS 2.8 mg/dL (2.5-4.9); SODIUM 136 MEQ/L (136-147); UREA NITROGEN (BUN) 30 mg/dL (9-23)
[2017-10-19 07:22] VITALS: BP 147/72
[2017-10-19 11:46] VITALS: BP 118/67
[2017-10-19 21:00] VITALS: BP 109/60
[2017-10-19 23:34] VITALS: BP 110/58
[2017-10-20 04:12] VITALS: BP 133/59
[2017-10-20 04:18] VITALS: BP 133/59
[2017-10-20 06:04] LABS: CHLORIDE 103 MEQ/L (99-109); CREATININE 0.5 MG/DL (0.6-1.3); GFR ESTIMATE (CALCULATED) > 59 mL/min/; GLUCOSE 257 mg/dL (70-99); PHOSPHORUS 3.2 mg/dL (2.5-4.9); POTASSIUM 4.5 MEQ/L (3.7-5.4); SODIUM 138 MEQ/L (136-147); UREA NITROGEN (BUN) 29 mg/dL (9-23)
[2017-10-20 11:40] VITALS: BP 106/56
[2017-10-20 16:00] VITALS: BP 115/64
[2017-10-20 16:01] VITALS: BP 118/81
[2017-10-20 19:00] VITALS: BP 105/59
[2017-10-21 00:27] VITALS: BP 112/60
[2017-10-21 04:11] VITALS: BP 118/63
[2017-10-21 07:18] LABS: CHLORIDE 105 MEQ/L (99-109); CREATININE 0.5 MG/DL (0.6-1.3); GFR ESTIMATE (CALCULATED) > 59 mL/min/; GLUCOSE 219 mg/dL (70-99); MAGNESIUM 2.1 mg/dl (1.3-2.7); PHOSPHORUS 3.2 mg/dL (2.5-4.9); POTASSIUM 3.9 MEQ/L (3.7-5.4); SODIUM 137 MEQ/L (136-147); UREA NITROGEN (BUN) 36 mg/dL (9-23)
[2017-10-21 09:06] VITALS: BP 139/84
[2017-10-21 10:17] LABS: HEMATOCRIT 23.7 % (36.0-46.0); HEMOGLOBIN 7.1 G/DL (11.9-15.5); MCH 27.5 PG (29.0-34.0); MCV 91.9 FL (83-99); PLATELET COUNT 449 K/uL (156-360); RBC DIS.WIDTH-CV 15.7 % (11.8-14.6); RBC DIS.WIDTH-SD 52.1 % (39-53); RED BLOOD COUNT 2.58 M/uL (3.80-5.20); WHITE BLOOD COUNT 9.7 K/uL (4.1-10.2)
[2017-10-21 13:03] VITALS: BP 122/67
[2017-10-21 16:39] VITALS: BP 110/65
[2017-10-21 18:56] LABS: HEMATOCRIT 22.5 % (36.0-46.0); MCV 90.4 FL (83-99)
[2017-10-21 19:37] VITALS: BP 109/64
[2017-10-22] VITALS (11 sets, daily range): BP systolic 106–156; BP diastolic 64–104
[2017-10-22 06:05] LABS: CHLORIDE 105 MEQ/L (99-109); CREATININE 0.6 MG/DL (0.6-1.3); GFR ESTIMATE (CALCULATED) > 59 mL/min/; GLUCOSE 144 mg/dL (70-99); MAGNESIUM 1.9 mg/dl (1.3-2.7); PHOSPHORUS 3.4 mg/dL (2.5-4.9); POTASSIUM 3.8 MEQ/L (3.7-5.4); SODIUM 138 MEQ/L (136-147); UREA NITROGEN (BUN) 31 mg/dL (9-23)
[2017-10-22 07:59] LABS: HEMATOCRIT 23.2 % (36.0-46.0); MCH 28.1 PG (29.0-34.0); MCHC 30.2 G/DL (30.0-36.0); MCV 93.2 FL (83-99); PLATELET COUNT 465 K/uL (156-360); RBC DIS.WIDTH-CV 15.9 % (11.8-14.6); RBC DIS.WIDTH-SD 54.2 % (39-53); RED BLOOD COUNT 2.49 M/uL (3.80-5.20); WHITE BLOOD COUNT 10.6 K/uL (4.1-10.2)
[2017-10-23 03:23] VITALS: BP 139/73
[2017-10-23 06:35] LABS: CHLORIDE 107 MEQ/L (99-109); CREATININE 0.5 MG/DL (0.6-1.3); GFR ESTIMATE (CALCULATED) > 59 mL/min/; MAGNESIUM 2.1 mg/dl (1.3-2.7); PHOSPHORUS 2.8 mg/dL (2.5-4.9); POTASSIUM 4.2 MEQ/L (3.7-5.4); SODIUM 139 MEQ/L (136-147); UREA NITROGEN (BUN) 36 mg/dL (9-23)
[2017-10-23 06:36] LABS: GLUCOSE 219 mg/dL (70-99)
[2017-10-23 08:15] VITALS: BP 133/72
[2017-10-23 10:58] VITALS: BP 97/58
[2017-10-23] MEDS ORDERED: ROXICODONE15 MG PO (11:06)
[2017-10-23] MEDS ORDERED: FENTANYL1 EAC4 TD (11:06)
[2017-10-23 11:07] LABS: HEMATOCRIT 27.6 % (36.0-46.0); HEMOGLOBIN 8.4 G/DL (11.9-15.5); MCH 27.2 PG (29.0-34.0); MCHC 30.4 G/DL (30.0-36.0); MCV 89.3 FL (83-99); PLATELET COUNT 444 K/uL (156-360); RBC DIS.WIDTH-CV 16.5 % (11.8-14.6); RBC DIS.WIDTH-SD 53.2 % (39-53); WHITE BLOOD COUNT 10.5 K/uL (4.1-10.2)
[2017-10-23 11:13] LABS: RED BLOOD COUNT 3.09 M/uL (3.80-5.20)
== END 2017-10-23 18:06 | disposition designated cancer center or children's hospital (05) | DRG 374 ==
LOC: EME → EDBD 19:12 → EME 19:12 → 4EAST 10-17 01:05 → EDOF 10-17 01:05 → ENRESERV 10-17 01:14 → 4EAST 10-17 02:28 → ENPENDDIS 10-23 → 4EAST 10-23 18:06
PROVIDERS: Emergency Medicine; Hospitalist; Internal Medicine; Physician Assistant
PROC: 5A09357 Assistance with Respiratory Ventilation, Less than 24 Consecutive Hours, Continuous Positive Airway Pressure (ICD-10-PCS; principal; 2017-10-17)
PROC: 3E0436Z Introduction of Nutritional Substance into Central Vein, Percutaneous Approach (ICD-10-PCS; 2017-10-17)
PROC: 0W9G3ZZ Drainage of Peritoneal Cavity, Percutaneous Approach (ICD-10-PCS; 2017-10-18)
PROC: 0W9B3ZZ Drainage of Left Pleural Cavity, Percutaneous Approach (ICD-10-PCS; 2017-10-18)
PROC: 0W9B30Z Drainage of Left Pleural Cavity with Drainage Device, Percutaneous Approach (ICD-10-PCS; 2017-10-20)
PROC: 3E0L3GC Introduction of Other Therapeutic Substance into Pleural Cavity, Percutaneous Approach (ICD-10-PCS; 2017-10-21)
PROC: 30233N1 Transfusion of Nonautologous Red Blood Cells into Peripheral Vein, Percutaneous Approach (ICD-10-PCS; 2017-10-22)
PROC: 0T25X0Z Change Drainage Device in Kidney, External Approach (ICD-10-PCS; 2017-10-23)
DX: C78.6 Secondary malignant neoplasm of retroperitoneum and peritoneum (principal); J96.21 Acute and chronic respiratory failure with hypoxia; J18.9 Pneumonia, unspecified organism; R18.0 Malignant ascites; J91.0 Malignant pleural effusion; J98.11 Atelectasis; N13.6 Pyonephrosis; F33.9 Major depressive disorder, recurrent, unspecified; Z51.5 Encounter for palliative care; Z66 Do not resuscitate; R64 Cachexia; E46 Unspecified protein-calorie malnutrition; C18.0 Malignant neoplasm of cecum; D62 Acute posthemorrhagic anemia; I12.9 Hypertensive chronic kidney disease with stage 1 through stage 4 chronic kidney disease, or unspecified chronic kidney disease; N18.9 Chronic kidney disease, unspecified; E03.9 Hypothyroidism, unspecified; E66.9 Obesity, unspecified; E78.5 Hyperlipidemia, unspecified; G47.33 Obstructive sleep apnea (adult) (pediatric); F41.9 Anxiety disorder, unspecified; K21.9 Gastro-esophageal reflux disease without esophagitis; D63.0 Anemia in neoplastic disease; Z96.651 Presence of right artificial knee joint; G89.29 Other chronic pain; D63.1 Anemia in chronic kidney disease; Z88.0 Allergy status to penicillin; Z68.35 Body mass index [BMI] 35.0-35.9, adult; Z79.01 Long term (current) use of anticoagulants; Z86.718 Personal history of other venous thrombosis and embolism; Z87.442 Personal history of urinary calculi; Z88.5 Allergy status to narcotic agent; Z88.8 Allergy status to other drugs, medicaments and biological substances; Z93.1 Gastrostomy status
CPT/HCPCS: 32557; 32560; 49083; 50435; 71046; 71250; 74018; 74176; 76942; 80048; 80053; 80076; 80202; 81003; 82948; 83605; 83735; 83880; 84100; 84134; 84478; 84484; 84540; 84630 90; 85014; 85018; 85027; 86850; 86900; 86901; 86920; 87040; 87070; 87086; 87205; 87641; 93005; 94799; 99281; 99285; C1729; C1766; J1815; J1940; J1956; J2405; J3010; J3370; J3475; J3480; P9016